=== PATIENT | male | born 1955 | race African-American/Black ===

== ENCOUNTER 2018-10-23 11:04 | Emergency (ER) | payer SELFPAY ==
[~2018-10-23] VITALS: Ht 177.8 cm; Wt 72.6 kg
[2018-10-23] MEDS ORDERED: PANTOPRAZOLE SO20 MG ORAL (11:19)
[2018-10-23] MEDS ORDERED: GABAPENTIN100 MG ORAL (11:19)
[2018-10-23] MEDS ORDERED: ADALAT10 MG ORAL (11:19)
[2018-10-23] MEDS ORDERED: METOPROLOL TART50 M1 ORAL (11:19)
[2018-10-23] MEDS ORDERED: TAMSULOSIN HCL0.4 MG ORAL (11:19)
[2018-10-23] MEDS ORDERED: TRAMADOL HCL50 MG ORAL (11:19)
[2018-10-23] MEDS ORDERED: LOSARTAN POTASS50 MG ORAL (11:19)
[2018-10-23 11:58] VITALS: BP 134/86
[2018-10-23 12:10] VITALS: BP 134/86
[2018-10-24] MEDS ORDERED: NIFEDIPINE ER60 M3 ORAL (19:50)
[2018-10-24] MEDS ORDERED: GABAPENTIN300 MG ORAL ×2 (19:50→19:54)
--- NOTE | 2018-10-25 06:52 | Emergency Room Report ---
History of Present Illness General Chief Complaint: General Complaint Source: Patient Present Illness HPI Patient presents with request for check of blood pressure Patient reports that he has long-standing history of blood pressure problems he is from [place] and has not had medications for Over the past 1 year Patient reports that he has had previous head trauma Otherwise denies any chest pain denies any back or flank pain denies any vomiting does not have any other complaints at this time Allergies: Coded Allergies: No Known Allergies (Unverified , 10/23/18) Patient History Past Medical History: see triage record Pertinent Family History: none Reviewed Nursing Documentation: PMH: Agreed; PSxH: Agreed Nursing Documentation-PMH Hx Hypertension: Yes Review of Systems All Other Systems: negative except mentioned in HPI Physical Exam Vital Signs Date Time Temp Pulse Resp B/P (MAP) Pulse Ox O2 Delivery O2 Flow Rate FiO2 10/23/18 11:10 98.6 86 18 134/86 98 Room Air Sp02 EP Interpretation: reviewed, normal General Appearance: well appearing, no apparent distress Head: normocephalic, atraumatic Eyes: bilateral eye PERRL, bilateral eye EOMI ENT: hearing grossly normal, normal pharynx, TMs + canals normal, uvula midline Neck: full range of motion, supple, no meningismus, no bony tend Respiratory: lungs clear, normal breath sounds, no rhonchi, no respiratory distress, no retraction, no accessory muscle use Cardiovascular #1: normal peripheral pulses, regular rate, rhythm, no edema, no gallop, no JVD, no murmur Gastrointestinal: normal bowel sounds, non tender, soft, no mass, no organomegaly, non-distended, no guarding, no hernia, no pulsatile mass, no rebound Genitourinary: no CVA tenderness Musculoskeletal: normal inspection Neurologic: oriented x3, responsive, finishing pan operator III-XII nml as tested, motor strength/ tone normal, sensory intact Psychiatric: mood/affect normal Skin: normal color, no rash, warm/dry, palpation normal Lymphatic: normal inspection, no adenopathy Medical Decision Making Diagnostic Impression: Primary Impression: hypertension ER Course Patient's blood pressure check here is appropriate Patient is asymptomatic he did request possible Prescription for medications I discussed with him that he has not taken medications for almost 1 year With today's blood pressure check would not be appropriate for the emergency room to initiate a prescription he was encouraged to check his blood pressure twice a day For the next several days and was provided with list of outpatient clinics Patient is told to return to the emergency room with any change in symptoms or other concerns Last Vital Signs Date Time Temp Pulse Resp B/P (MAP) Pulse Ox O2 Delivery O2 Flow Rate FiO2 10/23/18 12:10 98.6 82 18 134/86 98 Room Air Status: unchanged Disposition: HOME, SELF-CARE Condition: Stable Referrals: NOT CHOSEN IPA/,REFERRING (PCP) [facility] Radha Walker [facility] Patient Instructions: Hypertension, [id number] Additional Instructions: Your blood pressure today was normal upon the emergency room check. Please document your blood pressure twice a day for the next several days. He will also be provided with list of clinics to follow-up with. Please do not hesitate to return to the emergency room if you have any worsening symptoms such as chest pain, headache or other complaints Gisselle Ward DO Oct 25, 2018 06:52
== END 2018-10-23 11:50 | disposition home or self-care (01) ==
LOC: EMR 11:50
DX: I10 Essential (primary) hypertension (principal); F17.200 Nicotine dependence, unspecified, uncomplicated
CPT/HCPCS: 99281

== ENCOUNTER 2018-10-24 14:39 | Inpatient (IN) | payer MEDICAID ==
[~2018-10-24] VITALS: Ht 177.8 cm; Wt 81.4 kg
[~2018-10-24 14:39] MED LIST: ADALAT10 MG ORAL; GABAPENTIN100 MG ORAL; LOSARTAN POTASS50 MG ORAL; METOPROLOL TART50 M1 ORAL; PANTOPRAZOLE SO20 MG ORAL; TAMSULOSIN HCL0.4 MG ORAL; TRAMADOL HCL50 MG ORAL
--- NOTE | 2018-10-24 15:20 | NUR ---
ED Nurse Note: Received report. Pt A&Ox3-4, from home, c/o dizziness for a few hrs. During this dizziness pt became incontinent and had a bowel movement on himself. Pt cleaned. Pt had panic attack when speaking with MD; per MD assessment will do stroke work-up protocol.
--- NOTE | 2018-10-24 15:30 | NUR ---
ED Nurse Note: Pt had a dark tarry stool in liquid form. ERMD made aware. Pt was kept clean and dry. Skin is intact
[2018-10-24] MEDS ORDERED: LORazepam Inj 2mg/ml 1ml IV ONE (15:45)
--- NOTE | 2018-10-24 16:09 | Diagnostic Imaging Report ---
EXAM: XR Chest, 1 View CLINICAL HISTORY: CVA TECHNIQUE: Frontal view of the chest. COMPARISON: No relevant prior studies available. FINDINGS: Lungs: Unremarkable. No consolidation. Pleural space: Unremarkable. No pneumothorax. Heart: Unremarkable. No cardiomegaly. Mediastinum: Unremarkable. Bones/joints: Unremarkable. IMPRESSION: No evidence of acute pulmonary disease.
--- NOTE | 2018-10-24 16:11 | Diagnostic Imaging Report ---
EXAM: CT Head Without Intravenous Contrast CLINICAL HISTORY: CVA TECHNIQUE: Axial computed tomography images of the head/brain without intravenous contrast. CTDI is 70.38 mGy and DLP is 1432 mGy-cm. One or more of the following dose reduction techniques were used: automated exposure control, adjustment of the mA and/or kV according to patient size, use of iterative reconstruction technique. COMPARISON: No relevant prior studies available. FINDINGS: Brain: No intracranial hemorrhage or mass effect. No clear acute large vessel territorial infarct. 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 Minimal atrophy. Ventricles: Unremarkable. No ventriculomegaly. Bones/joints: Unremarkable. No acute fracture. Soft tissues: Unremarkable. Sinuses: Unremarkable as visualized. No acute sinusitis. Mastoid air cells: Unremarkable as visualized. No mastoid effusion. IMPRESSION: No acute intracranial process.
[2018-10-24 16:30] LABS: HEMATOCRIT 17.9 % (42.0-52.0); MEAN CORPUSCULAR VOLUME 74 FL (80-99); PLATELET COUNT 429 K/UL (150-450); RED BLOOD COUNT 2.41 M/UL (4.70-6.10); RED CELL DISTRIBUTION WIDTH 21.7 % (11.6-14.8); WHITE BLOOD COUNT 14.1 K/UL (4.8-10.8)
[2018-10-24 16:33] LABS: HEMOGLOBIN 5.4 G/DL (14.2-18.0)
[2018-10-24 16:40] LABS: ANION GAP 11 mmol/L (5-15); BLOOD UREA NITROGEN 27 mg/dL (7-18); CALCIUM 8.9 MG/DL (8.5-10.1); CARBON DIOXIDE 24 MMOL/L (21-32); CHLORIDE 110 MMOL/L (98-107); CREATININE 1.1 MG/DL (0.55-1.30); SODIUM 145 MMOL/L (136-145)
[2018-10-24] MEDS ORDERED: Pantoprazole Inj IVP ONE (16:45)
[2018-10-24 16:46] VITALS: BP 129/79
--- NOTE | 2018-10-24 16:46 | NUR ---
ED Nurse Note: Pt. is currently sleeping with no s/s of acute distress
[2018-10-24 16:50] LABS: ALANINE AMINOTRANSFERASE 18 U/L (12-78); ALBUMIN 3.2 G/DL (3.4-5.0); ALBUMIN/GLOBULIN RATIO 1.1 (1.0-2.7); ALKALINE PHOSPHATASE 51 U/L (46-116); ASPARTATE AMINO TRANSFERASE 9 U/L (15-37); BILIRUBIN,TOTAL 0.2 MG/DL (0.2-1.0); CHOLESTEROL 113 MG/DL (< 200); HDL CHOLESTEROL 49 MG/DL (40-60); TRIGLYCERIDES 81 MG/DL (30-150)
--- NOTE | 2018-10-24 17:04 | NUR ---
ED Nurse Note: called lab to follow up regarding the two pink top said. Dylan technician assistant verified it
[2018-10-24 18:09] VITALS: BP 122/71
--- NOTE | 2018-10-24 18:52 | Emergency Room Report ---
History of Present Illness General Chief Complaint: Dizziness Source: Patient Present Illness HPI 63-year-old male presents ED for evaluation. Complaining of dizziness which started today. States he feels lightheaded with unsteady gait. Denies any headache. Per nursing patient had large dark colored bowel movement here in ED. Patient denies any abdominal pain. Denies any prior history of dark stools. Denies any blood thinners. Denies chest pain or shortness of breath. No other aggravating relieving factors. Denies any other associated symptoms Allergies: Coded Allergies: No Known Allergies (Unverified , 10/23/18) Patient History Past Medical History: HTN Pertinent Family History: none Social History: Denies: smoking, alcohol use, drug use Immunizations: UTD Reviewed Nursing Documentation: PMH: Agreed; PSxH: Agreed Nursing Documentation-PMH Hx Hypertension: Yes Hx Gastrointestinal Problems: Yes Hx Neurological Problems: Yes - Head trauma Review of Systems All Other Systems: negative except mentioned in HPI Physical Exam Vital Signs Date Time Temp Pulse Resp B/P (MAP) Pulse Ox O2 Delivery O2 Flow Rate FiO2 10/24/18 14:57 98.1 93 18 112/69 100 Room Air Sp02 EP Interpretation: reviewed, normal General Appearance: no apparent distress, alert, GCS 15, non-toxic Head: normocephalic, atraumatic Eyes: bilateral eye normal inspection, bilateral eye PERRL ENT: hearing grossly normal, normal pharynx, no angioedema, normal voice Neck: full range of motion, supple/symm/no masses Respiratory: chest non-tender, lungs clear, normal breath sounds, speaking full sentences Cardiovascular #1: regular rate, rhythm, no edema Cardiovascular #2: 2+ carotid (R), 2+ carotid (L), 2+ radial (R), 2+ radial (L) , 2+ dorsalis pedis (R), 2+ dorsalis pedis (L) Gastrointestinal: normal bowel sounds, non tender, soft, non-distended, no guarding, no rebound Rectal: deferred, black stool Genitourinary: normal inspection, no CVA tenderness Musculoskeletal: back normal, gait/station normal, normal range of motion, non- tender Neurologic: alert, oriented x3, responsive, motor strength/tone normal, sensory intact, speech normal Psychiatric: judgement/insight normal, memory normal, mood/affect normal, no suicidal/homicidal ideation Reflexes: 3+ bicep (R), 3+ bicep (L), 3+ tricep (R), 3+ tricep (L), 3+ knee (R) , 3+ knee (L) Skin: normal color, no rash, warm/dry, well hydrated Lymphatic: no adenopathy Medical Decision Making Diagnostic Impression: Primary Impression: Dizziness Additional Impressions: Anemia Qualified Codes: D64.9 - Anemia, unspecified LGI bleed ER Course Hospital Course 63-year-old M presents to ED with rectal bleeding, dizziness Differential diagnoses include: LGIB, ACS/ID, CVA, anemia Clinical course Patient placed on stretcher. emergency medical service manager. After initial history and physical I ordered labs, IV fluids, CT Head, EKG Labs - no leukocytosis, Hb 5.4. electrolytes ok, trop negative EKG - NSR, no acute ischemic changes interpreed by me CT head unremarkable Dizziness likely due to anemia from the lower GI bleed. Given IV Protonix. Given IV fluids. PRBCs ordered Case discussed with Dr. Singer and he agreed to accept the patient to his service for further care and support I feel this is a highly complex case requiring extensive working including EKG/ Rhythm strip, Xray/CT/US, Blood/urine lab work, repeat exams while in ED, and administration of strong opiates/narcotics for pain control, admission to hospital or close patient follow up. Diagnosis - LGIB, dizziness, anemia Patient admitted to telemetry in serious condition Labs Test 10/24/18 15:38 10/24/18 16:11 Urine Opiates Screen Negative (NEGATIVE) Urine Barbiturates Screen Negative (NEGATIVE) Phencyclidine (PCP) Screen Negative (NEGATIVE) Urine Amphetamines Screen Negative (NEGATIVE) Urine Benzodiazepines Screen Negative (NEGATIVE) Urine Cocaine Screen Negative (NEGATIVE) Urine Marijuana (THC) Screen Negative (NEGATIVE) White Blood Count 14.1 K/UL (4.8-10.8) Red Blood Count 2.41 M/UL (4.70-6.10) Hemoglobin 5.4 G/DL (14.2-18.0) Hematocrit 17.9 % (42.0-52.0) Mean Corpuscular Volume 74 FL (80-99) Mean Corpuscular Hemoglobin 22.4 PG (27.0-31.0) Mean Corpuscular Hemoglobin Concent 30.2 G/DL (32.0-36.0) Red Cell Distribution Width 21.7 % (11.6-14.8) Platelet Count 429 K/UL (150-450) Mean Platelet Volume 4.7 FL (6.5-10.1) Neutrophils (%) (Auto) % (45.0-75.0) Lymphocytes (%) (Auto) % (20.0-45.0) Monocytes (%) (Auto) % (1.0-10.0) Eosinophils (%) (Auto) % (0.0-3.0) Basophils (%) (Auto) % (0.0-2.0) Differential Total Cells Counted 100 Neutrophils % (Manual) 85 % (45-75) Lymphocytes % (Manual) 11 % (20-45) Monocytes % (Manual) 4 % (1-10) Eosinophils % (Manual) 0 % (0-3) Basophils % (Manual) 0 % (0-2) Band Neutrophils 0 % (0-8) Platelet Estimate Adequate Platelet Morphology Normal Polychromasia 1+ Hypochromasia 3+ Anisocytosis 3+ Microcytosis 1+ Target Cells Occasional Acanthocytes 1+ Schistocytes 2+ Prothrombin Time 10.6 SEC (9.30-11.50) Prothromb Time International Ratio 1.0 (0.9-1.1) Activated Partial Thromboplast Time 20 SEC (23-33) Sodium Level 145 MMOL/L (136-145) Potassium Level 4.0 MMOL/L (3.5-5.1) Chloride Level 110 MMOL/L (98-107) Carbon Dioxide Level 24 MMOL/L (21-32) Anion Gap 11 mmol/L (5-15) Blood Urea Nitrogen 27 mg/dL (7-18) Creatinine 1.1 MG/DL (0.55-1.30) Estimat Glomerular Filtration Rate > 60 mL/min (>60) Glucose Level 106 MG/DL (74-106) Calcium Level 8.9 MG/DL (8.5-10.1) Total Bilirubin 0.2 MG/DL (0.2-1.0) Aspartate Amino Transf (AST/SGOT) 9 U/L (15-37) Alanine Aminotransferase (ALT/SGPT) 18 U/L (12-78) Alkaline Phosphatase 51 U/L (46-116) Troponin I 0.000 ng/mL (0.000-0.056) Total Protein 6.0 G/DL (6.4-8.2) Albumin 3.2 G/DL (3.4-5.0) Globulin 2.8 g/dL Albumin/Globulin Ratio 1.1 (1.0-2.7) Triglycerides Level 81 MG/DL (30-150) Cholesterol Level 113 MG/DL (< 200) LDL Cholesterol 49 mg/dL (<100) HDL Cholesterol 49 MG/DL (40-60) Cholesterol/HDL Ratio 2.3 (3.3-4.4) Salicylates Level 7.0 ug/mL (2.8-20) Acetaminophen Level < 2 MCG/ML (10-30) Serum Alcohol < 3 mg/dL EKG Diagnostic Results Rate: normal Rhythm: NSR ST Segments: no acute changes ASA given to the pt in ED: No Rhythm Strip Diag. Results EP Interpretation: yes Rhythm: NSR, no PVC's, no ectopy Chest X-Ray Diagnostic Results Chest X-Ray Diagnostic Results : Chest X-Ray Ordered: Yes # of Views/Limited/Complete: 1 View Indication: Other - dizziness EP Interpretation: Yes Interpretation: no consolidation, no effusion, no pneumothorax, no acute cardiopulmonary disease Impression: No acute disease Electronically Signed by: Electronically signed by Greg Flowers MD CT/MRI/US Diagnostic Results CT/MRI/US Diagnostic Results : Imaging Test Ordered: CT Head Impression no acute process Last Vital Signs Date Time Temp Pulse Resp B/P (MAP) Pulse Ox O2 Delivery O2 Flow Rate FiO2 10/24/18 16:46 78 18 Room Air 10/24/18 16:46 98.1 129/79 100 Status: improved Disposition: ADMITTED INPATIENT Condition: Serious Referrals: NOT CHOSEN IPA/,REFERRING (PCP) Greg Flowers MD Oct 24, 2018 18:52
--- NOTE | 2018-10-24 19:18 | NUR ---
HAND-OFF: Report given to Ale TSANG. Endorsed continuation of blood transfusions currently on bag . Also endorsed transfer to telemetry unit when room assignment received. Pt stable.
--- NOTE | 2018-10-24 19:35 | NUR ---
ED Nurse No RECIEVED REPORT FROM [facility], PT IN BED AWAKE, ALERT AND ORIENTED X 4, PT IS CURRENTLY RECIEVING BLOOD TRANSFUSION OF PRBC'S, TOLERATING WELL, SITE INTACT AND PATENT, PT ON CARDIAC MONITORING, V/S STABLE, PT DENEIS PAIN, NO SOB OR ALBORED BREATHING NOTED, PT FAMILY AT BEDSIDE, WILL RESUME CARE ORDERED, MONITOR TRANSUSION AND PREPARE FOR HOSPITAL ADMISSION.
[2018-10-24] MEDS ORDERED: NIFEDIPINE ER60 M3 ORAL (19:50)
[2018-10-24] MEDS ORDERED: GABAPENTIN300 MG ORAL ×2 (19:50→19:54)
[2018-10-24 20:00] VITALS: BP 127/68
--- NOTE | 2018-10-24 21:20 | NUR ---
ED Nurse Note: PT HAS ROOM FOR ADMISSION, PRBC CONTINUING, IV SITE INTACT AND PATENT, PT TOLERATING WELL, V/S STABLE, PT DENIES CP OR ANY PAIN, NO SOB OR LABORED BREATHING, REPORT CALLED TO FLOOR NURSE [facility] ON UNIT, PT BELONGINGS LIST COMPLETED, WILL SEND TO UNIT FOR ADMISSION, NAD OR CHANGES NOTED.
[2018-10-24] MEDS ORDERED: Morphine Sulfate 4mg/ml Inj (IV/IM USE ONLY) IVP PRN (21:30)
[2018-10-24] MEDS ORDERED: Mylanta II UD 30ml ORAL PRN (21:30)
[2018-10-24] MEDS ORDERED: Nitroglycerin Subl 0.4mg tab SL PRN (21:30)
[2018-10-24] MEDS ORDERED: Miralax 17gm pkt ORAL PRN (21:30)
[2018-10-24 22:00] VITALS: BP 129/77
--- NOTE | 2018-10-24 22:00 | NUR ---
ED Nurse Note: PT UNIT OF PRBC COMPLETED, PT TOLERATED WELL, V/S STABLE, NO S/S OF ADVERSE REACTION NOTED, PT IS CURRENTLY BEING TAKEN TO FLOOR UNIT FOR ADMISISON, LINE FLUSING, PT DENEIS CP OR ANY PAIN, ALL FORMS, EKG, AND BELONGINGS LIST WITH PT, WILL SEND TO FLOOR BED.
--- NOTE | 2018-10-24 22:20 | NUR ---
ED Nurse Note: PT TAKEN TO FLOOR UNIT VIA GURNEY AND ACLS PROTOCOLS WITH CARDIAC MONITORING, RN, AND ER-TECH, PT IS AWAKE AND ALERT, DENEIS CP OR ANY PAIN, IV SITE PATENT, NAD NOTED DURING PT TRANSPORT TO UNIT.
[2018-10-24 22:30] VITALS: BP 119/79
--- NOTE | 2018-10-24 22:30 | NUR ---
NURSE NOTES: Pt safely admitted to floor from ED. Pt belongings verified. compliance monitor applied and pt in SR in the 70s. Report received from [facility]. Pt is lying comfortably in semi-fowlers with no signs of distress. A+Ox4 and denies pain/SOB. Respirations are even and unlabored on room air. IV site is patent, intact, and saline locked. Bed is at lowest position, brakes engaged, siderails x2, bed alarm on, and call light within reach. Pt is in stable condition at this time; will continue to monitor.
--- NOTE | 2018-10-24 22:35 | NUR ---
NURSE NOTES: Spoke with Dr. Salas and admission orders are in. Dr. Salas ordered to continue the rest of the PRBCs ordered by ED MD. Will carry out order.
[2018-10-24] MEDS: D5NS 1,000 ML IV SCH (22:43)
[2018-10-24] MEDS ORDERED: Phytonadione 10 MG in D5W 55 ML IVPB ONE (23:00)
--- NOTE | 2018-10-24 23:13 | General Progress Note ---
Assessment/Plan Assessment/Plan Assessment - GIB - s/p gastric bypass - microcytic anemia Recommendations - clears - GI prep - EGD/Colon Friday Thank you P Yohannes Subjective Allergies: Coded Allergies: No Known Allergies (Unverified , 10/23/18) Objective Last 24 Hour Vital Signs Date Time Temp Pulse Resp B/P (MAP) Pulse Ox O2 Delivery O2 Flow Rate FiO2 10/24/18 22:20 98.4 77 16 129/77 99 Room Air 10/24/18 22:00 98.4 77 16 129/77 99 Room Air 10/24/18 20:00 98.1 77 16 127/68 99 Room Air 10/24/18 18:09 98.1 73 16 122/71 98 Room Air 10/24/18 16:46 78 18 Room Air 10/24/18 16:46 98.1 78 18 129/79 100 Room Air 10/24/18 14:57 98.1 93 18 112/69 100 Room Air Laboratory Tests 10/24/18 15:38: Urine Opiates Screen Negative, Urine Barbiturates Screen Negative, Phencyclidine (PCP) Screen Negative, Urine Amphetamines Screen Negative, Urine Benzodiazepines Screen Negative, Urine Cocaine Screen Negative, Urine Marijuana (THC) Screen Negative 10/24/18 16:11: White Blood Count 14.1H, Red Blood Count 2.41L, Hemoglobin 5.4*L, Hematocrit 17.9L, Mean Corpuscular Volume 74L, Mean Corpuscular Hemoglobin 22.4L, Mean Corpuscular Hemoglobin Concent 30.2L, Red Cell Distribution Width 21.7H, Platelet Count 429, Mean Platelet Volume 4.7L, Neutrophils (%) (Auto) , Lymphocytes (%) (Auto) , Monocytes (%) (Auto) , Eosinophils (%) (Auto) , Basophils (%) (Auto) , Differential Total Cells Counted 100, Neutrophils % ( Manual) 85H, Lymphocytes % (Manual) 11L, Monocytes % (Manual) 4, Eosinophils % ( Manual) 0, Basophils % (Manual) 0, Band Neutrophils 0, Platelet Estimate Adequate, Platelet Morphology Normal, Polychromasia 1+, Hypochromasia 3+, Anisocytosis 3+, Microcytosis 1+, Target Cells Occasional, Acanthocytes 1+, Schistocytes 2+, Prothrombin Time 10.6, Prothromb Time International Ratio 1.0, Activated Partial Thromboplast Time 20L, Sodium Level 145, Potassium Level 4.0, Chloride Level 110H, Carbon Dioxide Level 24, Anion Gap 11, Blood Urea Nitrogen 27H, Creatinine 1.1, Estimat Glomerular Filtration Rate > 60, Glucose Level 106 , Calcium Level 8.9, Total Bilirubin 0.2, Aspartate Amino Transf (AST/SGOT) 9L, Alanine Aminotransferase (ALT/SGPT) 18, Alkaline Phosphatase 51, Troponin I 0.000, Total Protein 6.0L, Albumin 3.2L, Globulin 2.8, Albumin/Globulin Ratio 1.1, Triglycerides Level 81, Cholesterol Level 113, LDL Cholesterol 49, HDL Cholesterol 49, Cholesterol/HDL Ratio 2.3L, Salicylates Level 7.0, Acetaminophen Level < 2L, Serum Alcohol < 3 Height (Feet): 5 Height (Inches): 10.00 Weight (Pounds): 175 Chava Sheffield MD Oct 24, 2018 23:13
--- NOTE | 2018-10-24 23:26 | NUR ---
NURSE NOTES: 2/4 bag of PRBCs started.
[2018-10-25] VITALS: BP 134/67
[2018-10-25 04:00] VITALS: BP 119/79
--- NOTE | 2018-10-25 04:30 | Consultation ---
DATE OF CONSULTATION: 10/24/2018 GASTROENTEROLOGY CONSULTATION CONSULTING PHYSICIAN: Chava Sheffield M.D. REFERRING PHYSICIAN: Srinivas Singer D.O. CHIEF COMPLAINT: I was asked to see this patient by Dr. Srinivas Singer for evaluation of gastrointestinal bleeding. HISTORY OF PRESENT ILLNESS: The patient is a 63-year-old man, who is a poor historian who was brought in to the hospital due to dizziness. He was found to have rectal bleeding and therefore was admitted. He has severe anemia as well as less counts. He stated he had a gastric bypass many years ago. He is very unsure of date and several times throughout the interview, he stated you follow my chart and my brother has the chart. It seems he has had a colonoscopy before, but once again, he is completely unaware of how many years ago it might have been done. He denies any nausea or vomiting, but he does have hematochezia on admission. PAST MEDICAL HISTORY: History of hypertension. FAMILY HISTORY: Noncontributory. SOCIAL HISTORY: The patient is . He does smoke. He does not drink alcohol. REVIEW OF SYSTEMS: Otherwise negative. MEDICATIONS: See the chart list for details. PHYSICAL EXAMINATION: GENERAL: A well-developed and well-nourished man, seen in his room. HEENT: Normocephalic and atraumatic. Sclerae were anicteric. Oropharynx is clear. NECK: Supple. CHEST: Clear to auscultation. CARDIOVASCULAR: Revealed regular rate. ABDOMEN: Soft with a linear epigastric vertical scar. EXTREMITIES: Revealed no edema. NEUROLOGIC: Grossly nonfocal. LABORATORY DATA: Noted. ASSESSMENT: This patient presents with hematochezia and severe microcytic anemia of unclear etiology. The gastric bypass may potentially have caused long-term iron deficiency and microcytic anemia, however, he also has some degree of hematochezia and therefore, acute gastrointestinal bleeding will have to be also evaluated. In addition, his upper GI tract may have anastomotic ulcers with intermittent long-term blood loss and therefore, both upper endoscopy and colonoscopy should be done to evaluate his gastrointestinal tract. The indications, risks, alternatives, and possible complications of the procedures were explained to the patient and informed consent was obtained. RECOMMENDATIONS: 1. Clear liquid diet. 2. GI tract preparation. 3. Endoscopy and colonoscopy on Friday. Thank you for asking me to participate in the care of this patient. Chava Sheffield M.D. DR: ALLIE JOB#: [id number] CC: CHANTALE
--- NOTE | 2018-10-25 07:12 | NUR ---
NURSE NOTES: Pt received from Bri Perry RN alert and oriented x4 with no complaints or s/s of pain, SOB, or n/v. Currently running 4th bag of PRBC with no s/s of adverse reactions, will continue to monitor pt. IV site asymptomatic and patent. Bed in lowest position, call light and belongings within reach. RN advised pt that he can have clear liquids today and that he will be on [place] but he will have to be NPO at midnight tonight for EGD and colonoscopy tomorrow, pt verbalized understanding.
[2018-10-25 08:00] VITALS: BP 126/83
[2018-10-25] MEDS: D5NS 1,000 ML IV SCH ×2 (08:00→17:44)
[2018-10-25] MEDS: Metoprolol Tartrate 50mg tab ORAL SCH ×2 (08:32→21:27)
[2018-10-25] MEDS: Pantoprazole Inj IVP SCH (08:33)
[2018-10-25 10:38] LABS: HEMATOCRIT 23.1 % (42.0-52.0); HEMOGLOBIN 7.7 G/DL (14.2-18.0); MEAN CORPUSCULAR VOLUME 77 FL (80-99); PLATELET COUNT 303 K/UL (150-450); RED BLOOD COUNT 2.99 M/UL (4.70-6.10); RED CELL DISTRIBUTION WIDTH 18.4 % (11.6-14.8); WHITE BLOOD COUNT 8.4 K/UL (4.8-10.8)
[2018-10-25 11:04] LABS: ALANINE AMINOTRANSFERASE 18 U/L (12-78); ALBUMIN 2.5 G/DL (3.4-5.0); ALBUMIN/GLOBULIN RATIO 1.1 (1.0-2.7); ALKALINE PHOSPHATASE 49 U/L (46-116); AMYLASE 44 U/L (25-115); ANION GAP 5 mmol/L (5-15); ASPARTATE AMINO TRANSFERASE 17 U/L (15-37); BILIRUBIN,TOTAL 0.9 MG/DL (0.2-1.0); BLOOD UREA NITROGEN 16 mg/dL (7-18); CALCIUM 7.8 MG/DL (8.5-10.1); CARBON DIOXIDE 25 MMOL/L (21-32); CHLORIDE 111 MMOL/L (98-107); CREATININE 0.9 MG/DL (0.55-1.30); POTASSIUM 3.6 MMOL/L (3.5-5.1); SODIUM 141 MMOL/L (136-145)
[2018-10-25 12:00] VITALS: BP 132/90
[2018-10-25] MEDS ORDERED: Nulytely 4L ORAL ONE (12:00)
--- NOTE | 2018-10-25 12:45 | NUR ---
NURSE NOTES: RN called [facility] to obtain medical records from EGD and colonoscopy done on October 2018 but there was no answer. Per Martha, the ad terminal makeup operator, stated that they are closed on Sundays but will open on Friday at 8AM. Will endorse to the next RN to have morning RN follow up with and call [facility] ([phone]).
--- NOTE | 2018-10-25 14:36 | NUR ---
CASE MANAGEMENT: INITIAL REVIEW 10/24/2018 63 YO M PRESENTED TO ED FROM HOME CC: DIZZINESS PMHx: HTN. HEAD TRAUMA. SI:DIZZINESS. ANEMIA. LOWER GI BLEED. T 98.1 HR 93 RR 18 B/P 112/69 SATS 100% ON RA WBC 14.1 HGB 5.4 HCT 17.9 CL 110 BUN 27 AST 9 IS: ATIVAN IV X1 PROTONIX IV X1 NS BOLUS X1 PATIENT ADMITTED TO TELE 10/24/2018 @ 1801 DCP: PATIENT TO BE DISCHARGED TO HOME ONCE MEDICALLY CLEARED. PLAN OF CARE: PER MD>> 1. Clear liquid diet. 2. GI tract preparation. 3. Endoscopy and colonoscopy on Friday. 10/25/2018 SI:DIZZINESS. ANEMIA. LOWER GI BLEED. T 97.5 71 RR 18 B/P 134/67 SATS 96% ON RA HGB 7.7 HCT 23.1 CL 111 IS: IVF @ 100 mL/HR LOPRESSOR PO Q12H FLOMAX PO QHS GABAPENTIN PO BID PROTONIX IV QD TELE STATUS DCP: PATIENT TO BE DISCHARGED TO HOME ONCE MEDICALLY CLEARED. PLAN OF CARE: TRANSFUSE 4 UNITS OF RBCs PER MD>> 1. Clear liquid diet. 2. GI tract preparation. 3. Endoscopy and colonoscopy on Friday. Addendum: 10/25/18 at 1836 by Ruth Zamora CM INTERQUAL MET FOR ACUTE
--- NOTE | 2018-10-25 15:21 | Cardiology Report ---
APPROVED REPORT EKG Measurement Heart [id number] ND [id number] Normal sinus rhythm Normal ECG
--- NOTE | 2018-10-25 15:37 | Consultation ---
History of Present Illness General Date patient seen: Oct 25, 2018 Chief Complaint: Dizziness Present Illness HPI 63-year-old male presents ED for evaluation. Complaining of dizziness which started today. States he feels lightheaded with unsteady gait. Denies any headache. Patient had large dark colored bowel movement in ED. Patient denies any abdominal pain. Denies any prior history of dark stools. Denies any blood thinners. Denies chest pain or shortness of breath. No other aggravating relieving factors. Denies any other associated symptoms. Apparently he had extensive work up done recently in a hospital in [place]. Allergies: Coded Allergies: No Known Allergies (Unverified , 10/23/18) Medication History Scheduled Gabapentin* (Gabapentin*), 300 MG ORAL BID, (Reported) Losartan Potassium* (Losartan Potassium*), 100 MG ORAL DAILY, (Reported) Metoprolol Tartrate* (Metoprolol Tartrate*), 50 MG ORAL EVERY 12 HOURS, ( Reported) Nifedipine Er* (Nifedipine Er*), 60 MG ORAL DAILY, (Reported) Pantoprazole (Pantoprazole), 40 MG ORAL DAILY, (Reported) Tamsulosin Hcl (Tamsulosin Hcl*), 0.4 MG ORAL BEDTIME, (Reported) Scheduled PRN Tramadol Hcl* (Ultram*), 50 MG ORAL Q6H PRN for For Pain, (Reported) Discontinued Medications Gabapentin* (Gabapentin*), 100 MG ORAL THREE TIMES A DAY, (Reported) Discontinued Reason: Medication dose changed Nifedipine (Nifedipine*), 60 MG ORAL EVERY 6 HOURS, (Reported) Discontinued Reason: Medication dose changed Patient History Healthcare decision maker Resuscitation status Full Code Advanced Directive on File No Past Medical/Surgical History Past Medical/Surgical History: (1) Anemia (2) HTN (hypertension) Review of Systems All Other Systems: negative except mentioned in HPI Physical Exam General Appearance: WD/WN Lines, tubes and drains: peripheral, PICC HEENT: normocephalic, atraumatic Neck: non-tender, supple Respiratory/Chest: chest wall non-tender, no respiratory distress Cardiovascular/Chest: normal peripheral pulses, regular rhythm Last 24 Hour Vital Signs Date Time Temp Pulse Resp B/P (MAP) Pulse Ox O2 Delivery O2 Flow Rate FiO2 10/25/18 08:32 81 126/83 10/25/18 08:00 100 10/25/18 08:00 98.3 80 18 126/83 (97) 100 10/25/18 04:00 82 10/25/18 04:00 98.5 73 18 119/79 (92) 95 10/25/18 00:00 97.5 71 18 134/67 (89) 96 10/25/18 00:00 70 10/24/18 22:57 Room Air 10/24/18 22:30 98.5 73 18 119/79 (92) 95 10/24/18 22:20 98.4 77 16 129/77 99 Room Air 10/24/18 22:00 98.4 77 16 129/77 99 Room Air 10/24/18 20:00 98.1 77 16 127/68 99 Room Air 10/24/18 18:09 98.1 73 16 122/71 98 Room Air 10/24/18 16:46 78 18 Room Air 10/24/18 16:46 98.1 78 18 129/79 100 Room Air Intake and Output 10/24/18 10/25/18 19:00 07:00 Output Total 400 ml Balance -400 ml Output Urine Total 400 ml # Voids 1 2 Laboratory Tests Test 10/24/18 15:38 10/24/18 16:11 10/25/18 10:00 Urine Opiates Screen Negative (NEGATIVE) Urine Barbiturates Screen Negative (NEGATIVE) Phencyclidine (PCP) Screen Negative (NEGATIVE) Urine Amphetamines Screen Negative (NEGATIVE) Urine Benzodiazepines Screen Negative (NEGATIVE) Urine Cocaine Screen Negative (NEGATIVE) Urine Marijuana (THC) Screen Negative (NEGATIVE) White Blood Count 14.1 K/UL (4.8-10.8) H 8.4 K/UL (4.8-10.8) Red Blood Count 2.41 M/UL (4.70-6.10) L 2.99 M/UL (4.70-6.10) L Hemoglobin 5.4 G/DL (14.2-18.0) *L 7.7 G/DL (14.2-18.0) #L Hematocrit 17.9 % (42.0-52.0) L 23.1 % (42.0-52.0) L Mean Corpuscular Volume 74 FL (80-99) L 77 FL (80-99) L Mean Corpuscular Hemoglobin 22.4 PG (27.0-31.0) L 25.9 PG (27.0-31.0) L Mean Corpuscular Hemoglobin Concent 30.2 G/DL (32.0-36.0) L 33.5 G/DL (32.0-36.0) Red Cell Distribution Width 21.7 % (11.6-14.8) H 18.4 % (11.6-14.8) H Platelet Count 429 K/UL (150-450) 303 K/UL (150-450) Mean Platelet Volume 4.7 FL (6.5-10.1) L 5.2 FL (6.5-10.1) L Neutrophils (%) (Auto) % (45.0-75.0) % (45.0-75.0) Lymphocytes (%) (Auto) % (20.0-45.0) % (20.0-45.0) Monocytes (%) (Auto) % (1.0-10.0) % (1.0-10.0) Eosinophils (%) (Auto) % (0.0-3.0) % (0.0-3.0) Basophils (%) (Auto) % (0.0-2.0) % (0.0-2.0) Differential Total Cells Counted 100 100 Neutrophils % (Manual) 85 % (45-75) H 88 % (45-75) H Lymphocytes % (Manual) 11 % (20-45) L 5 % (20-45) L Monocytes % (Manual) 4 % (1-10) 5 % (1-10) Eosinophils % (Manual) 0 % (0-3) 1 % (0-3) Basophils % (Manual) 0 % (0-2) 1 % (0-2) Band Neutrophils 0 % (0-8) 0 % (0-8) Platelet Estimate Adequate Adequate Platelet Morphology Normal Normal Polychromasia 1+ 2+ Hypochromasia 3+ 2+ Anisocytosis 3+ 2+ Microcytosis 1+ 2+ Target Cells Occasional Acanthocytes 1+ Schistocytes 2+ 2+ Prothrombin Time 10.6 SEC (9.30-11.50) 10.7 SEC (9.30-11.50) Prothromb Time International Ratio 1.0 (0.9-1.1) 1.0 (0.9-1.1) Activated Partial Thromboplast Time 20 SEC (23-33) L 22 SEC (23-33) L Sodium Level 145 MMOL/L (136-145) 141 MMOL/L (136-145) Potassium Level 4.0 MMOL/L (3.5-5.1) 3.6 MMOL/L (3.5-5.1) Chloride Level 110 MMOL/L (98-107) H 111 MMOL/L (98-107) H Carbon Dioxide Level 24 MMOL/L (21-32) 25 MMOL/L (21-32) Anion Gap 11 mmol/L (5-15) 5 mmol/L (5-15) Blood Urea Nitrogen 27 mg/dL (7-18) H 16 mg/dL (7-18) Creatinine 1.1 MG/DL (0.55-1.30) 0.9 MG/DL (0.55-1.30) Estimat Glomerular Filtration Rate > 60 mL/min (>60) > 60 mL/min (>60) Glucose Level 106 MG/DL (74-106) 92 MG/DL (74-106) Calcium Level 8.9 MG/DL (8.5-10.1) 7.8 MG/DL (8.5-10.1) L Total Bilirubin 0.2 MG/DL (0.2-1.0) 0.9 MG/DL (0.2-1.0) Aspartate Amino Transf (AST/SGOT) 9 U/L (15-37) L 17 U/L (15-37) Alanine Aminotransferase (ALT/SGPT) 18 U/L (12-78) 18 U/L (12-78) Alkaline Phosphatase 51 U/L (46-116) 49 U/L (46-116) Troponin I 0.000 ng/mL (0.000-0.056) Total Protein 6.0 G/DL (6.4-8.2) L 4.8 G/DL (6.4-8.2) L Albumin 3.2 G/DL (3.4-5.0) L 2.5 G/DL (3.4-5.0) L Globulin 2.8 g/dL 2.3 g/dL Albumin/Globulin Ratio 1.1 (1.0-2.7) 1.1 (1.0-2.7) Triglycerides Level 81 MG/DL (30-150) Cholesterol Level 113 MG/DL (< 200) LDL Cholesterol 49 mg/dL (<100) HDL Cholesterol 49 MG/DL (40-60) Cholesterol/HDL Ratio 2.3 (3.3-4.4) L Salicylates Level 7.0 ug/mL (2.8-20) Acetaminophen Level < 2 MCG/ML (10-30) L Serum Alcohol < 3 mg/dL Nucleated Red Blood Cells 4 /100 WBC Amylase Level 44 U/L (25-115) Lipase 220 U/L (73-393) Height (Feet): 5 Height (Inches): 10.00 Weight (Pounds): 175 Medications Current Medications Medications (Trade) Dose Ordered Sig/Keyon Route PRN Reason Start Time Stop Time Status Last Admin Dose Admin Acetaminophen (Tylenol) 650 mg Q4H PRN ORAL fever (temp>100.5F) 10/24/18 21:30 11/23/18 21:29 Al Hydroxide/Mg Hydroxide (Mylanta II) 30 ml Q6H PRN ORAL dyspepsia 10/24/18 21:30 11/23/18 21:29 Dextrose (Dextrose 50%) 25 ml Q30M PRN IV Hypoglycemia 10/24/18 21:30 11/23/18 21:29 Dextrose (Dextrose 50%) 50 ml Q30M PRN IV Hypoglycemia 10/24/18 21:30 11/23/18 21:29 Dextrose/Sodium Chloride 1,000 ml @ 100 mls/hr Q10H IV 10/24/18 22:00 11/23/18 21:59 10/24/18 22:43 Diphenhydramine HCl (Benadryl) 25 mg Q6H PRN ORAL Itching/Pruritis 10/24/18 21:30 11/23/18 21:29 Gabapentin (Neurontin) 300 mg BID ORAL 10/25/18 09:00 11/24/18 08:59 10/25/18 08:32 Metoprolol Tartrate (Lopressor) 50 mg EVERY 12 HOURS ORAL 10/25/18 09:00 11/24/18 08:59 10/25/18 08:32 Morphine Sulfate (Morphine Sulfate) 2 mg Q4H PRN IVP severe Pain (Pain Scale 7-10) 10/24/18 21:30 10/31/18 21:29 Nitroglycerin (Ntg) 0.4 mg Q5M X 3 DOSES PRN SL Prn Chest Pain 10/24/18 21:30 11/23/18 21:29 Ondansetron HCl (Zofran) 4 mg Q6H PRN IVP Nausea & Vomiting 10/24/18 21:30 11/23/18 21:29 Pantoprazole (Protonix) 40 mg DAILY IVP 10/25/18 09:00 11/24/18 08:59 10/25/18 08:33 Polyethylene Glycol (Miralax) 17 gm HSPRN PRN ORAL Constipation 10/24/18 21:30 11/23/18 21:29 Tamsulosin HCl (Flomax) 0.4 mg BEDTIME ORAL 10/25/18 21:00 11/24/18 20:59 Temazepam (Restoril) 15 mg HSPRN PRN ORAL Insomnia 10/24/18 21:30 10/31/18 21:29 Assessment/Plan Problem List: (1) LGI bleed ICD Codes: K92.2 - Gastrointestinal hemorrhage, unspecified SNOMED: 07565776, 143420333 (2) HTN (hypertension) ICD Codes: I10 - Essential (primary) hypertension SNOMED: 65711076 (3) Anemia ICD Codes: D64.9 - Anemia, unspecified SNOMED: 400423870, 128876816 Qualifiers: Qualified Codes: D64.9 - Anemia, unspecified Assessment/Plan npo GI evaluation prbc prn symptomatic treatment Nelsy Salas MD Oct 25, 2018 15:37
[2018-10-25 16:00] VITALS: BP 127/84
--- NOTE | 2018-10-25 17:26 | General Progress Note ---
Assessment/Plan Assessment/Plan Assessment - GIB - s/p gastric bypass - microcytic anemia Recommendations - hold off on Friday EGD/Colon - Get results of recent EGD/Colon done in [facility] - transfuse PRN - IV Fe Subjective Allergies: Coded Allergies: No Known Allergies (Unverified , 10/23/18) Subjective received call from RN apparently brother showed with some papers from a hospital in [place] apparently the patient had an EGD/Colon just a few weeks ago advised RN to hold GI prep instructions and to get the results of outside EGD/ Colon Objective Last 24 Hour Vital Signs Date Time Temp Pulse Resp B/P (MAP) Pulse Ox O2 Delivery O2 Flow Rate FiO2 10/25/18 12:00 64 10/25/18 12:00 97.4 61 18 132/90 (104) 99 10/25/18 09:00 Room Air 10/25/18 08:32 81 126/83 10/25/18 08:00 100 10/25/18 08:00 98.3 80 18 126/83 (97) 100 10/25/18 04:00 82 10/25/18 04:00 98.5 73 18 119/79 (92) 95 10/25/18 00:00 97.5 71 18 134/67 (89) 96 10/25/18 00:00 70 10/24/18 22:57 Room Air 10/24/18 22:30 98.5 73 18 119/79 (92) 95 10/24/18 22:20 98.4 77 16 129/77 99 Room Air 10/24/18 22:00 98.4 77 16 129/77 99 Room Air 10/24/18 20:00 98.1 77 16 127/68 99 Room Air 10/24/18 18:09 98.1 73 16 122/71 98 Room Air Intake and Output 10/24/18 10/25/18 19:00 07:00 Output Total 400 ml Balance -400 ml Output Urine Total 400 ml # Voids 1 2 Laboratory Tests 10/25/18 10:00: White Blood Count 8.4, Red Blood Count 2.99L, Hemoglobin 7.7#L, Hematocrit 23.1L , Mean Corpuscular Volume 77L, Mean Corpuscular Hemoglobin 25.9L, Mean Corpuscular Hemoglobin Concent 33.5, Red Cell Distribution Width 18.4H, Platelet Count 303, Mean Platelet Volume 5.2L, Neutrophils (%) (Auto) , Lymphocytes (%) (Auto) , Monocytes (%) (Auto) , Eosinophils (%) (Auto) , Basophils (%) (Auto) , Differential Total Cells Counted 100, Neutrophils % ( Manual) 88H, Lymphocytes % (Manual) 5L, Monocytes % (Manual) 5, Eosinophils % ( Manual) 1, Basophils % (Manual) 1, Band Neutrophils 0, Nucleated Red Blood Cells 4, Platelet Estimate Adequate, Platelet Morphology Normal, Polychromasia 2 +, Hypochromasia 2+, Anisocytosis 2+, Microcytosis 2+, Schistocytes 2+, Prothrombin Time 10.7, Prothromb Time International Ratio 1.0, Activated Partial Thromboplast Time 22L, Sodium Level 141, Potassium Level 3.6, Chloride Level 111H, Carbon Dioxide Level 25, Anion Gap 5, Blood Urea Nitrogen 16, Creatinine 0.9, Estimat Glomerular Filtration Rate > 60, Glucose Level 92, Calcium Level 7.8L, Total Bilirubin 0.9, Aspartate Amino Transf (AST/SGOT) 17, Alanine Aminotransferase (ALT/SGPT) 18, Alkaline Phosphatase 49, Total Protein 4.8L, Albumin 2.5L, Globulin 2.3, Albumin/Globulin Ratio 1.1, Amylase Level 44, Lipase 220 Height (Feet): 5 Height (Inches): 10.00 Weight (Pounds): 175 Objective WDWN NCAT supple CTA RRR abd soft ND NT no edema Chava Sehffield MD Oct 25, 2018 17:26
--- NOTE | 2018-10-25 17:33 | Diagnostic Imaging Report ---
EXAM: US Duplex Bilateral Lower Extremity Veins CLINICAL HISTORY: DVT TECHNIQUE: Real-time duplex ultrasound scan of the bilateral lower extremity veins integrating B-mode two-dimensional vascular structure, Doppler spectral analysis, color flow Doppler imaging and compression. COMPARISON: No relevant prior studies available. FINDINGS: Right deep veins: Unremarkable. No DVT in the right common femoral, femoral, proximal deep femoral or popliteal veins. The veins demonstrate normal color flow, are normally compressible, with normal phasic flow and/or augmentation response. Right superficial veins: Unremarkable. No thrombus in the visualized right great saphenous vein. Left deep veins: Unremarkable. No DVT in the left common femoral, femoral, proximal deep femoral or popliteal veins. The veins demonstrate normal color flow, are normally compressible, with normal phasic flow and/or augmentation response. Left superficial veins: Unremarkable. No thrombus in the visualized left great saphenous vein. Soft tissues: No acute findings. IMPRESSION: No DVT.
--- NOTE | 2018-10-25 18:14 | History and Physical Report ---
DATE OF ADMISSION: 10/24/2018 TIME SEEN: at 10 a.m. CONSULTANTS: 1. Nelsy Salas M.D. 2. Sudheer Tavares M.D. 3. Trav Guillen M.D. CHIEF COMPLAINT: Lower GI bleed, dark stool, anemia, weakness, dizziness. BRIEF HISTORY: This is a 63-year-old male, who lives at home, presents with dark stool since yesterday who came to [place], diagnosed with lower GI bleed, severe anemia 5.4, weakness, and dizziness admitted to telemetry for further care. Currently, calm in bed, feeling little better, no complaint. REVIEW OF SYSTEMS: No chest pain. Slight short of breath. Slight nausea. No vomiting. No diarrhea. PAST MEDICAL M9LYRECC: Include hypertension and stomach ulcers. PAST SURGICAL HISTORY: Ulcer surgery. ALLERGIES: Denies. SOCIAL HISTORY: Positive smoke. Occasional alcohol. No intravenous drug abuse. FAMILY HISTORY: Noncontributory. PHYSICAL EXAMINATION: GENERAL: Calm in bed. Oriented x3, no acute distress. VITAL SIGNS: Temperature is 98 degrees, pulse 82, respirations 18, and blood pressure 119/79. CARDIOVASCULAR: No murmurs. LUNGS: Distant and clear. ABDOMEN: Bowel sounds positive. Nontender. Nondistended. EXTREMITIES: No cyanosis, clubbing, or edema. NEUROLOGIC: The patient moves all extremities, slightly weak. LABORATORY AND DIAGNOSTIC DATA: White count 14, hemoglobin and hematocrit 5.0/17, and platelets 429. BMP shows chloride 110, BUN 27, otherwise normal. INR is 1.0 and PTT is 20. Urine tox is negative. MEDICATIONS: Flomax, Neurontin, Lopressor, Protonix, , morphine, Zofran, Restoril, Benadryl, and nitroglycerin. ASSESSMENT: 1. Lower GI bleed. 2. Anemia. 3. Weakness. 4. Dizziness. 5. Hypertension. 6. History of ulcers. PLAN: 1. GI followup. 2. IV fluids. 3. Possible endoscopy. 4. Dietary evaluation. 5. CBC and BMP in the morning. Srinivas Singer D.O. DR: INEZ JOB#: [id number] CC:
--- NOTE | 2018-10-25 19:02 | NUR ---
HAND-OFF: Report given to Brisa Lee RN.
[2018-10-25 19:28] LABS: % IRON SATURATION 9 % (15-50); IRON 28 ug/dL (50-175); TOTAL IRON BINDING CAPACITY 312 ug/dL (250-450)
[2018-10-25 19:44] LABS: FERRITIN 28 NG/ML (8-388)
[2018-10-25 20:00] VITALS: BP 114/78
--- NOTE | 2018-10-25 20:16 | NUR ---
NURSE NOTES: Received 63 year old male, in bed awake, alert and verbally responsive. Patient denied any complaint of pain. No acute respiratory distress. Bed locked and in low position, side rails up X2, call light within reach.
[2018-10-25] MEDS: Iron Sucrose 100 MG in NS 55 ML IV SCH (21:28)
[2018-10-25] MEDS: Tamsulosin 0.4mg cap ORAL SCH (21:28)
--- NOTE | 2018-10-25 23:30 | NUR ---
HAND-OFF: Report given to WILBUR Pena.
[2018-10-26] VITALS: BP 127/79
[2018-10-26 04:00] VITALS: BP 127/84
[2018-10-26] MEDS: D5NS 1,000 ML IV SCH ×3 (04:25→22:21)
--- NOTE | 2018-10-26 07:20 | NUR ---
HAND-OFF: Report given to TRINH Roberts. Pt is in stable condition; plan of care endorsed.
--- NOTE | 2018-10-26 07:22 | NUR ---
NURSE NOTES: I received the patient awake and alert x4, sitting at the side of the bed. Patient did not display any signs of distress or SOB. Bed in the lowest position and call light within reach. I will continue to monitor the patient and implement care.
[2018-10-26 08:00] VITALS: BP 137/91
[2018-10-26 08:13] LABS: BASOPHILS % (AUTO) 0.7 % (0.0-2.0); EOSINOPHILS % (AUTO) 2.6 % (0.0-3.0); HEMATOCRIT 27.9 % (42.0-52.0); HEMOGLOBIN 9.1 G/DL (14.2-18.0); LYMPHOCYTES % (AUTO) 11.4 % (20.0-45.0); MEAN CORPUSCULAR VOLUME 79 FL (80-99); MONOCYTES % (AUTO) 8.1 % (1.0-10.0); NEUTROPHILS % (AUTO) 77.2 % (45.0-75.0); PLATELET COUNT 315 K/UL (150-450); RED BLOOD COUNT 3.54 M/UL (4.70-6.10); RED CELL DISTRIBUTION WIDTH 19.4 % (11.6-14.8); WHITE BLOOD COUNT 11.4 K/UL (4.8-10.8)
[2018-10-26] MEDS: Pantoprazole Inj IVP SCH (08:19)
[2018-10-26] MEDS: Metoprolol Tartrate 50mg tab ORAL SCH ×2 (08:19→22:20)
[2018-10-26 08:30] LABS: ANION GAP 9 mmol/L (5-15); BLOOD UREA NITROGEN 9 mg/dL (7-18); CALCIUM 8.4 MG/DL (8.5-10.1); CARBON DIOXIDE 24 MMOL/L (21-32); CHLORIDE 109 MMOL/L (98-107); POTASSIUM 3.5 MMOL/L (3.5-5.1); SODIUM 142 MMOL/L (136-145)
[2018-10-26 11:50] VITALS: BP 127/81
--- NOTE | 2018-10-26 11:59 | GI Progress Note ---
Assessment/Plan Problems: (1) Iron deficiency ICD Codes: E61.1 - Iron deficiency SNOMED: 51613690 (2) Anemia ICD Codes: D64.9 - Anemia, unspecified SNOMED: 867177415, 000915017 Qualifiers: Qualified Codes: D64.9 - Anemia, unspecified (3) LGI bleed ICD Codes: K92.2 - Gastrointestinal hemorrhage, unspecified SNOMED: 67820222, 872606803 Status: progressing Status Narrative Discussed with Dr. Tavares Assessment/Plan Assessment - GIB - s/p gastric bypass - microcytic anemia Recommendations - hold off on Friday EGD/Colon, GI procedures if necessary - Get results of recent EGD/Colon done in [facility], still pending. - transfuse PRN - IV Fe - ppi - OB s rule out any GI Bleed - fu labs The patient was seen and examined at bedside and all new and available data was reviewed in the patients chart. I agree with the above findings, impression and plan. (Patient seen earlier today. Signature stamp does not reflect patient encounter time.). - Sudheer Tavares MD Subjective Gastrointestinal/Abdominal: Reports: no symptoms Objective Last 24 Hour Vital Signs Date Time Temp Pulse Resp B/P (MAP) Pulse Ox O2 Delivery O2 Flow Rate FiO2 10/26/18 11:50 98.7 63 20 127/81 (96) 98 10/26/18 09:00 Room Air 10/26/18 08:19 83 137/91 10/26/18 08:00 98.4 83 20 137/91 (106) 99 10/26/18 07:32 81 10/26/18 04:00 97.6 55 20 127/84 (98) 99 10/26/18 04:00 53 10/26/18 00:00 97.9 59 18 127/79 (95) 100 10/26/18 00:00 58 10/25/18 21:27 68 114/78 10/25/18 21:00 Room Air 10/25/18 20:00 66 10/25/18 20:00 98.1 68 18 114/78 (90) 100 10/25/18 16:00 64 10/25/18 16:00 99.0 62 18 127/84 (98) 98 10/25/18 12:00 64 10/25/18 12:00 97.4 61 18 132/90 (104) 99 Intake and Output 10/25/18 10/26/18 19:00 07:00 Intake Total 600 ml Output Total 1050 ml 800 ml Balance -450 ml -800 ml Intake Oral 600 ml Output Urine Total 1050 ml 800 ml # Bowel Movements 1 Laboratory Tests Test 10/25/18 18:30 10/26/18 07:42 Iron Level 28 ug/dL (50-175) L Total Iron Binding Capacity 312 ug/dL (250-450) Percent Iron Saturation 9 % (15-50) L Unsaturated Iron Binding 284 ug/dL (112-346) Ferritin 28 NG/ML (8-388) White Blood Count 11.4 K/UL (4.8-10.8) H Red Blood Count 3.54 M/UL (4.70-6.10) L Hemoglobin 9.1 G/DL (14.2-18.0) L Hematocrit 27.9 % (42.0-52.0) L Mean Corpuscular Volume 79 FL (80-99) L Mean Corpuscular Hemoglobin 25.6 PG (27.0-31.0) L Mean Corpuscular Hemoglobin Concent 32.4 G/DL (32.0-36.0) Red Cell Distribution Width 19.4 % (11.6-14.8) H Platelet Count 315 K/UL (150-450) Mean Platelet Volume 5.5 FL (6.5-10.1) L Neutrophils (%) (Auto) 77.2 % (45.0-75.0) H Lymphocytes (%) (Auto) 11.4 % (20.0-45.0) L Monocytes (%) (Auto) 8.1 % (1.0-10.0) Eosinophils (%) (Auto) 2.6 % (0.0-3.0) Basophils (%) (Auto) 0.7 % (0.0-2.0) Sodium Level 142 MMOL/L (136-145) Potassium Level 3.5 MMOL/L (3.5-5.1) Chloride Level 109 MMOL/L (98-107) H Carbon Dioxide Level 24 MMOL/L (21-32) Anion Gap 9 mmol/L (5-15) Blood Urea Nitrogen 9 mg/dL (7-18) Creatinine 1.0 MG/DL (0.55-1.30) Estimat Glomerular Filtration Rate > 60 mL/min (>60) Glucose Level 136 MG/DL (74-106) H Calcium Level 8.4 MG/DL (8.5-10.1) L Height (Feet): 5 Height (Inches): 10.00 Weight (Pounds): 175 General Appearance: WD/WN, no apparent distress, alert Cardiovascular: normal rate Respiratory/Chest: normal breath sounds, no respiratory distress Abdominal Exam: normal bowel sounds, non tender, soft Extremities: normal range of motion, non-tender Juju Sullivan NP Oct 26, 2018 11:59
--- NOTE | 2018-10-26 14:26 | General Progress Note ---
Assessment/Plan Problem List: (1) HTN (hypertension) ICD Codes: I10 - Essential (primary) hypertension SNOMED: 02761148 (2) Dizziness ICD Codes: R42 - Dizziness and giddiness SNOMED: 030433651, 305666968 (3) Iron deficiency ICD Codes: E61.1 - Iron deficiency SNOMED: 79420852 (4) Anemia ICD Codes: D64.9 - Anemia, unspecified SNOMED: 985760332, 461053030 Qualifiers: Qualified Codes: D64.9 - Anemia, unspecified (5) LGI bleed ICD Codes: K92.2 - Gastrointestinal hemorrhage, unspecified SNOMED: 06016434, 054496983 Status: unchanged Assessment/Plan pt diet transfuse prn gi f/u cbc bmp am Subjective Constitutional: Reports: weakness Allergies: Coded Allergies: No Known Allergies (Unverified , 10/23/18) All Systems: reviewed and negative except above Subjective calm in bed Objective Last 24 Hour Vital Signs Date Time Temp Pulse Resp B/P (MAP) Pulse Ox O2 Delivery O2 Flow Rate FiO2 10/26/18 11:50 98.7 63 20 127/81 (96) 98 10/26/18 11:41 63 10/26/18 09:00 Room Air 10/26/18 08:19 83 137/91 10/26/18 08:00 98.4 83 20 137/91 (106) 99 10/26/18 07:32 81 10/26/18 04:00 97.6 55 20 127/84 (98) 99 10/26/18 04:00 53 10/26/18 00:00 97.9 59 18 127/79 (95) 100 10/26/18 00:00 58 10/25/18 21:27 68 114/78 10/25/18 21:00 Room Air 10/25/18 20:00 66 10/25/18 20:00 98.1 68 18 114/78 (90) 100 10/25/18 16:00 64 10/25/18 16:00 99.0 62 18 127/84 (98) 98 Intake and Output 10/25/18 10/26/18 19:00 07:00 Intake Total 600 ml Output Total 1050 ml 800 ml Balance -450 ml -800 ml Intake Oral 600 ml Output Urine Total 1050 ml 800 ml # Bowel Movements 1 Laboratory Tests 10/25/18 18:30: Iron Level 28L, Total Iron Binding Capacity 312, Percent Iron Saturation 9L, Unsaturated Iron Binding 284, Ferritin 28 10/26/18 07:42: White Blood Count 11.4H, Red Blood Count 3.54L, Hemoglobin 9.1L, Hematocrit 27.9L, Mean Corpuscular Volume 79L, Mean Corpuscular Hemoglobin 25.6L, Mean Corpuscular Hemoglobin Concent 32.4, Red Cell Distribution Width 19.4H, Platelet Count 315, Mean Platelet Volume 5.5L, Neutrophils (%) (Auto) 77.2H, Lymphocytes (%) (Auto) 11.4L, Monocytes (%) (Auto) 8.1, Eosinophils (%) (Auto) 2.6, Basophils (%) (Auto) 0.7, Sodium Level 142, Potassium Level 3.5, Chloride Level 109H, Carbon Dioxide Level 24, Anion Gap 9, Blood Urea Nitrogen 9, Creatinine 1.0, Estimat Glomerular Filtration Rate > 60, Glucose Level 136H, Calcium Level 8.4L Height (Feet): 5 Height (Inches): 10.00 Weight (Pounds): 175 General Appearance: lethargic EENT: normal ENT inspection Neck: normal alignment Cardiovascular: normal peripheral pulses, normal rate, regular rhythm Respiratory/Chest: chest wall non-tender, lungs clear, normal breath sounds Abdomen: normal bowel sounds, non tender, soft Extremities: normal inspection Edema: no edema noted Arm (L), no edema noted Arm (R), no edema noted Leg (L), no edema noted Leg (R), no edema noted Pedal (L), no edema noted Pedal (R), no edema noted Generalized Neurologic: responsive, motor weakness Skin: normal pigmentation, warm/dry Srinivas Singer DO Oct 26, 2018 14:26
--- NOTE | 2018-10-26 14:44 | Pulmonology Progress Note ---
Assessment/Plan Problems: (1) LGI bleed (2) HTN (hypertension) (3) Anemia Assessment/Plan npo GI evaluation prbc prn symptomatic treatment check h/h check electrolytes Subjective ROS Limited/Unobtainable: No Constitutional: Reports: no symptoms HEENT: Repors: no symptoms Allergies: Coded Allergies: No Known Allergies (Unverified , 10/23/18) Objective Last 24 Hour Vital Signs Date Time Temp Pulse Resp B/P (MAP) Pulse Ox O2 Delivery O2 Flow Rate FiO2 10/26/18 11:50 98.7 63 20 127/81 (96) 98 10/26/18 11:41 63 10/26/18 09:00 Room Air 10/26/18 08:19 83 137/91 10/26/18 08:00 98.4 83 20 137/91 (106) 99 10/26/18 07:32 81 10/26/18 04:00 97.6 55 20 127/84 (98) 99 10/26/18 04:00 53 10/26/18 00:00 97.9 59 18 127/79 (95) 100 10/26/18 00:00 58 10/25/18 21:27 68 114/78 10/25/18 21:00 Room Air 10/25/18 20:00 66 10/25/18 20:00 98.1 68 18 114/78 (90) 100 10/25/18 16:00 64 10/25/18 16:00 99.0 62 18 127/84 (98) 98 Intake and Output 10/25/18 10/26/18 19:00 07:00 Intake Total 600 ml Output Total 1050 ml 800 ml Balance -450 ml -800 ml Intake Oral 600 ml Output Urine Total 1050 ml 800 ml # Bowel Movements 1 General Appearance: WD/WN HEENT: normocephalic, anicteric Respiratory/Chest: chest wall non-tender, lungs clear Cardiovascular: normal peripheral pulses, regular rhythm Abdomen: normal bowel sounds, no organomegaly Genitourinary: normal external genitalia Skin: no lesions Laboratory Tests 10/25/18 18:30: Iron Level 28L, Total Iron Binding Capacity 312, Percent Iron Saturation 9L, Unsaturated Iron Binding 284, Ferritin 28 10/26/18 07:42: White Blood Count 11.4H, Red Blood Count 3.54L, Hemoglobin 9.1L, Hematocrit 27.9L, Mean Corpuscular Volume 79L, Mean Corpuscular Hemoglobin 25.6L, Mean Corpuscular Hemoglobin Concent 32.4, Red Cell Distribution Width 19.4H, Platelet Count 315, Mean Platelet Volume 5.5L, Neutrophils (%) (Auto) 77.2H, Lymphocytes (%) (Auto) 11.4L, Monocytes (%) (Auto) 8.1, Eosinophils (%) (Auto) 2.6, Basophils (%) (Auto) 0.7, Sodium Level 142, Potassium Level 3.5, Chloride Level 109H, Carbon Dioxide Level 24, Anion Gap 9, Blood Urea Nitrogen 9, Creatinine 1.0, Estimat Glomerular Filtration Rate > 60, Glucose Level 136H, Calcium Level 8.4L Current Medications Medications (Trade) Dose Ordered Sig/Keyon Route PRN Reason Start Time Stop Time Status Last Admin Dose Admin Acetaminophen (Tylenol) 650 mg Q4H PRN ORAL fever (temp>100.5F) 10/24/18 21:30 11/23/18 21:29 Al Hydroxide/Mg Hydroxide (Mylanta II) 30 ml Q6H PRN ORAL dyspepsia 10/24/18 21:30 11/23/18 21:29 Dextrose (Dextrose 50%) 25 ml Q30M PRN IV Hypoglycemia 10/24/18 21:30 11/23/18 21:29 Dextrose (Dextrose 50%) 50 ml Q30M PRN IV Hypoglycemia 10/24/18 21:30 11/23/18 21:29 Dextrose/Sodium Chloride 1,000 ml @ 100 mls/hr Q10H IV 10/24/18 22:00 11/23/18 21:59 10/26/18 14:15 Diphenhydramine HCl (Benadryl) 25 mg Q6H PRN ORAL Itching/Pruritis 10/24/18 21:30 11/23/18 21:29 Gabapentin (Neurontin) 300 mg BID ORAL 10/25/18 09:00 11/24/18 08:59 10/26/18 08:18 Iron Sucrose 100 mg/Sodium Chloride 60 ml @ 240 mls/hr BEDTIME IV 10/25/18 21:00 10/29/18 21:14 10/25/18 21:28 Metoprolol Tartrate (Lopressor) 50 mg EVERY 12 HOURS ORAL 10/25/18 09:00 11/24/18 08:59 10/26/18 08:19 Morphine Sulfate (Morphine Sulfate) 2 mg Q4H PRN IVP severe Pain (Pain Scale 7-10) 10/24/18 21:30 10/31/18 21:29 Nitroglycerin (Ntg) 0.4 mg Q5M X 3 DOSES PRN SL Prn Chest Pain 10/24/18 21:30 11/23/18 21:29 Ondansetron HCl (Zofran) 4 mg Q6H PRN IVP Nausea & Vomiting 10/24/18 21:30 11/23/18 21:29 Pantoprazole (Protonix) 40 mg DAILY IVP 10/25/18 09:00 11/24/18 08:59 10/26/18 08:19 Polyethylene Glycol (Miralax) 17 gm HSPRN PRN ORAL Constipation 10/24/18 21:30 11/23/18 21:29 Tamsulosin HCl (Flomax) 0.4 mg BEDTIME ORAL 10/25/18 21:00 11/24/18 20:59 10/25/18 21:28 Temazepam (Restoril) 15 mg HSPRN PRN ORAL Insomnia 10/24/18 21:30 10/31/18 21:29 Nelsy Salas MD Oct 26, 2018 14:44
--- NOTE | 2018-10-26 15:18 | NUR ---
CASE MANAGEMENT:REVIEW 10/26/18 SI: LGIB. ANEMIA. HTN 98.7 63 20 99198 98% ON RA WBC+11.4 H/H-9.1/27.9 IS: IVF@100/HR IV VENOFER QHS LOPRESSOR PO Q12 IV PROTONIX QD : TELEMETRY STATUS DCP: FROM HOME
[2018-10-26 16:00] VITALS: BP 104/68
--- NOTE | 2018-10-26 19:30 | NUR ---
Hand-off report received from Alejandra TSANG with bedside rounds. Pt received in bed awake alert and oriented X4. Waiting for Med-Surg bed for transfer. Denies pain. Continue to monitor and assist. as needed.
[2018-10-26 20:00] VITALS: BP_SYST 118
--- NOTE | 2018-10-26 20:00 | NUR ---
Tele Strip data for 10/26/2018 @2000 should be filed under 10/27/2018 @ 0000 instead.
[2018-10-26] MEDS: Tamsulosin 0.4mg cap ORAL SCH (22:19)
[2018-10-26] MEDS: Iron Sucrose 100 MG in NS 55 ML IV SCH (22:19)
[2018-10-27] VITALS: BP 115/72
[2018-10-27 04:00] VITALS: BP 120/74
[2018-10-27 07:15] LABS: BASOPHILS % (AUTO) 1.2 % (0.0-2.0); HEMOGLOBIN 8.2 G/DL (14.2-18.0); LYMPHOCYTES % (AUTO) 19.1 % (20.0-45.0); MEAN CORPUSCULAR VOLUME 80 FL (80-99); MONOCYTES % (AUTO) 8.9 % (1.0-10.0); NEUTROPHILS % (AUTO) 67.8 % (45.0-75.0); PLATELET COUNT 299 K/UL (150-450); RED BLOOD COUNT 3.13 M/UL (4.70-6.10); RED CELL DISTRIBUTION WIDTH 20.7 % (11.6-14.8)
--- NOTE | 2018-10-27 07:15 | NUR ---
NURSE NOTES: I received the patient resting in bed. Patient does not display any signs of distress or SOB. Bed in the lowest position and call light within reach.
[2018-10-27 07:25] LABS: ANION GAP 6 mmol/L (5-15); BLOOD UREA NITROGEN 8 mg/dL (7-18); CARBON DIOXIDE 27 MMOL/L (21-32); CHLORIDE 112 MMOL/L (98-107); CREATININE 0.8 MG/DL (0.55-1.30); POTASSIUM 3.8 MMOL/L (3.5-5.1); SODIUM 144 MMOL/L (136-145)
[2018-10-27 08:00] VITALS: BP 124/83
[2018-10-27] MEDS: Metoprolol Tartrate 50mg tab ORAL SCH ×2 (08:40→21:00)
[2018-10-27] MEDS: Pantoprazole Inj IVP SCH (08:40)
[2018-10-27] MEDS: D5NS 1,000 ML IV SCH ×2 (08:45→15:39)
--- NOTE | 2018-10-27 09:09 | Cardiac Electrophysiology PN ---
Subjective Subjective [id number] Objective Last 24 Hour Vital Signs Date Time Temp Pulse Resp B/P (MAP) Pulse Ox O2 Delivery O2 Flow Rate FiO2 10/27/18 08:40 77 124/83 10/27/18 08:00 98.7 77 20 124/83 (97) 100 10/27/18 04:00 99.9 64 16 120/74 (89) 100 10/27/18 04:00 64 10/27/18 00:00 61 10/27/18 00:00 97.6 85 16 115/72 (86) 16 10/26/18 22:20 83 118/74 10/26/18 21:00 Room Air 10/26/18 20:00 61 10/26/18 20:00 98.1 83 16 118/ 100 83 10/26/18 16:00 97.8 81 20 104/68 (80) 92 10/26/18 15:16 77 10/26/18 11:50 98.7 63 20 127/81 (96) 98 10/26/18 11:41 63 Intake and Output 10/26/18 10/27/18 19:00 07:00 Intake Total 1710 ml Output Total 2100 ml 850 ml Balance -390 ml -850 ml Intake Oral 810 ml IV Total 900 ml Output Urine Total 2100 ml 850 ml Laboratory Tests Test 10/26/18 13:30 10/27/18 05:50 Stool Occult Blood Pending White Blood Count 9.0 K/UL (4.8-10.8) Red Blood Count 3.13 M/UL (4.70-6.10) L Hemoglobin 8.2 G/DL (14.2-18.0) L Hematocrit 25.0 % (42.0-52.0) L Mean Corpuscular Volume 80 FL (80-99) Mean Corpuscular Hemoglobin 26.0 PG (27.0-31.0) L Mean Corpuscular Hemoglobin Concent 32.7 G/DL (32.0-36.0) Red Cell Distribution Width 20.7 % (11.6-14.8) H Platelet Count 299 K/UL (150-450) Mean Platelet Volume 5.5 FL (6.5-10.1) L Neutrophils (%) (Auto) 67.8 % (45.0-75.0) Lymphocytes (%) (Auto) 19.1 % (20.0-45.0) L Monocytes (%) (Auto) 8.9 % (1.0-10.0) Eosinophils (%) (Auto) 3.0 % (0.0-3.0) Basophils (%) (Auto) 1.2 % (0.0-2.0) Sodium Level 144 MMOL/L (136-145) Potassium Level 3.8 MMOL/L (3.5-5.1) Chloride Level 112 MMOL/L (98-107) H Carbon Dioxide Level 27 MMOL/L (21-32) Anion Gap 6 mmol/L (5-15) Blood Urea Nitrogen 8 mg/dL (7-18) Creatinine 0.8 MG/DL (0.55-1.30) Estimat Glomerular Filtration Rate > 60 mL/min (>60) Glucose Level 86 MG/DL (74-106) Calcium Level 8.0 MG/DL (8.5-10.1) L Trav Guillen MD Oct 27, 2018 09:09
--- NOTE | 2018-10-27 11:40 | Pulmonology Progress Note ---
Assessment/Plan Problems: (1) LGI bleed (2) HTN (hypertension) (3) Anemia Assessment/Plan npo hem dropped form 9 to 8 GI evaluation prbc prn symptomatic treatment check h/h check electrolytes prbc prn Subjective ROS Limited/Unobtainable: No Constitutional: Reports: no symptoms HEENT: Repors: no symptoms Respiratory: Reports: no symptoms Allergies: Coded Allergies: No Known Allergies (Unverified , 10/23/18) Objective Last 24 Hour Vital Signs Date Time Temp Pulse Resp B/P (MAP) Pulse Ox O2 Delivery O2 Flow Rate FiO2 10/27/18 09:00 Room Air 10/27/18 08:40 77 124/83 10/27/18 08:00 98.7 77 20 124/83 (97) 100 10/27/18 07:59 93 10/27/18 04:00 99.9 64 16 120/74 (89) 100 10/27/18 04:00 64 10/27/18 00:00 61 10/27/18 00:00 97.6 85 16 115/72 (86) 16 10/26/18 22:20 83 118/74 10/26/18 21:00 Room Air 10/26/18 20:00 61 10/26/18 20:00 98.1 83 16 118/ 100 83 10/26/18 16:00 97.8 81 20 104/68 (80) 92 10/26/18 15:16 77 10/26/18 11:50 98.7 63 20 127/81 (96) 98 10/26/18 11:41 63 Intake and Output 10/26/18 10/27/18 19:00 07:00 Intake Total 1710 ml Output Total 2100 ml 850 ml Balance -390 ml -850 ml Intake Oral 810 ml IV Total 900 ml Output Urine Total 2100 ml 850 ml General Appearance: WD/WN HEENT: normocephalic, atraumatic Respiratory/Chest: chest wall non-tender, lungs clear Cardiovascular: normal peripheral pulses, normal rate Abdomen: normal bowel sounds, soft, non tender Genitourinary: normal external genitalia Extremities: no clubbing Neurologic/Psychiatric: competency evaluated nurse aide II-XII grossly normal Laboratory Tests 10/26/18 13:30: Stool Occult Blood [Pending] 10/27/18 05:50: White Blood Count 9.0, Red Blood Count 3.13L, Hemoglobin 8.2L, Hematocrit 25.0L , Mean Corpuscular Volume 80, Mean Corpuscular Hemoglobin 26.0L, Mean Corpuscular Hemoglobin Concent 32.7, Red Cell Distribution Width 20.7H, Platelet Count 299, Mean Platelet Volume 5.5L, Neutrophils (%) (Auto) 67.8, Lymphocytes (%) (Auto) 19.1L, Monocytes (%) (Auto) 8.9, Eosinophils (%) (Auto) 3.0, Basophils (%) (Auto) 1.2, Sodium Level 144, Potassium Level 3.8, Chloride Level 112H, Carbon Dioxide Level 27, Anion Gap 6, Blood Urea Nitrogen 8, Creatinine 0.8, Estimat Glomerular Filtration Rate > 60, Glucose Level 86, Calcium Level 8.0L Current Medications Medications (Trade) Dose Ordered Sig/Keyon Route PRN Reason Start Time Stop Time Status Last Admin Dose Admin Acetaminophen (Tylenol) 650 mg Q4H PRN ORAL fever (temp>100.5F) 10/24/18 21:30 11/23/18 21:29 Al Hydroxide/Mg Hydroxide (Mylanta II) 30 ml Q6H PRN ORAL dyspepsia 10/24/18 21:30 11/23/18 21:29 Clonidine HCl (Catapres Tab) 0.1 mg Q4H PRN ORAL sbp>170 10/27/18 09:15 11/26/18 09:14 Dextrose (Dextrose 50%) 25 ml Q30M PRN IV Hypoglycemia 10/24/18 21:30 11/23/18 21:29 Dextrose (Dextrose 50%) 50 ml Q30M PRN IV Hypoglycemia 10/24/18 21:30 11/23/18 21:29 Dextrose/Sodium Chloride 1,000 ml @ 100 mls/hr Q10H IV 10/24/18 22:00 11/23/18 21:59 10/27/18 08:45 Diphenhydramine HCl (Benadryl) 25 mg Q6H PRN ORAL Itching/Pruritis 10/24/18 21:30 11/23/18 21:29 Gabapentin (Neurontin) 300 mg BID ORAL 10/25/18 09:00 11/24/18 08:59 10/27/18 08:40 Iron Sucrose 100 mg/Sodium Chloride 60 ml @ 240 mls/hr BEDTIME IV 10/25/18 21:00 10/29/18 21:14 10/26/18 22:19 Metoprolol Tartrate (Lopressor) 50 mg EVERY 12 HOURS ORAL 10/25/18 09:00 11/24/18 08:59 10/27/18 08:40 Morphine Sulfate (Morphine Sulfate) 2 mg Q4H PRN IVP severe Pain (Pain Scale 7-10) 10/24/18 21:30 10/31/18 21:29 Nitroglycerin (Ntg) 0.4 mg Q5M X 3 DOSES PRN SL Prn Chest Pain 10/24/18 21:30 11/23/18 21:29 Ondansetron HCl (Zofran) 4 mg Q6H PRN IVP Nausea & Vomiting 10/24/18 21:30 11/23/18 21:29 Pantoprazole (Protonix) 40 mg DAILY IVP 10/25/18 09:00 11/24/18 08:59 10/27/18 08:40 Polyethylene Glycol (Miralax) 17 gm HSPRN PRN ORAL Constipation 10/24/18 21:30 11/23/18 21:29 Tamsulosin HCl (Flomax) 0.4 mg BEDTIME ORAL 10/25/18 21:00 11/24/18 20:59 10/26/18 22:19 Temazepam (Restoril) 15 mg HSPRN PRN ORAL Insomnia 10/24/18 21:30 10/31/18 21:29 Nelsy Salas MD Oct 27, 2018 11:40
[2018-10-27 11:50] VITALS: BP 119/77
--- NOTE | 2018-10-27 13:43 | GI Progress Note ---
Assessment/Plan Problems: (1) Iron deficiency ICD Codes: E61.1 - Iron deficiency SNOMED: 86139062 (2) Anemia ICD Codes: D64.9 - Anemia, unspecified SNOMED: 490107059, 492516469 Qualifiers: Qualified Codes: D64.9 - Anemia, unspecified (3) LGI bleed ICD Codes: K92.2 - Gastrointestinal hemorrhage, unspecified SNOMED: 60447966, 592114423 Status: unchanged Status Narrative Discussed with Dr. Tavares Assessment/Plan Assessment - GIB - s/p gastric bypass - microcytic anemia Unable to obtain operative results from the [facility] Recommendations We will schedule patient for EGD and colonoscopy tomorrow given severe anemia and positive OB stool -Clear liquid diet now, n.p.o. at midnight -Hold all blood thinners - transfuse PRN - IV Fe - ppi - fu labs The patient was seen and examined at bedside and all new and available data was reviewed in the patients chart. I agree with the above findings, impression and plan. (Patient seen earlier today. Signature stamp does not reflect patient encounter time.). - Sduheer Tavares MD Subjective Gastrointestinal/Abdominal: Reports: no symptoms Objective Last 24 Hour Vital Signs Date Time Temp Pulse Resp B/P (MAP) Pulse Ox O2 Delivery O2 Flow Rate FiO2 10/27/18 11:58 58 10/27/18 11:50 98.2 68 20 119/77 (91) 100 10/27/18 09:00 Room Air 10/27/18 08:40 77 124/83 10/27/18 08:00 98.7 77 20 124/83 (97) 100 10/27/18 07:59 93 10/27/18 04:00 99.9 64 16 120/74 (89) 100 10/27/18 04:00 64 10/27/18 00:00 61 10/27/18 00:00 97.6 85 16 115/72 (86) 16 10/26/18 22:20 83 118/74 10/26/18 21:00 Room Air 10/26/18 20:00 61 10/26/18 20:00 98.1 83 16 118/ 100 83 10/26/18 16:00 97.8 81 20 104/68 (80) 92 10/26/18 15:16 77 Intake and Output 10/26/18 10/27/18 19:00 07:00 Intake Total 1710 ml Output Total 2100 ml 850 ml Balance -390 ml -850 ml Intake Oral 810 ml IV Total 900 ml Output Urine Total 2100 ml 850 ml Laboratory Tests Test 10/27/18 05:50 White Blood Count 9.0 K/UL (4.8-10.8) Red Blood Count 3.13 M/UL (4.70-6.10) L Hemoglobin 8.2 G/DL (14.2-18.0) L Hematocrit 25.0 % (42.0-52.0) L Mean Corpuscular Volume 80 FL (80-99) Mean Corpuscular Hemoglobin 26.0 PG (27.0-31.0) L Mean Corpuscular Hemoglobin Concent 32.7 G/DL (32.0-36.0) Red Cell Distribution Width 20.7 % (11.6-14.8) H Platelet Count 299 K/UL (150-450) Mean Platelet Volume 5.5 FL (6.5-10.1) L Neutrophils (%) (Auto) 67.8 % (45.0-75.0) Lymphocytes (%) (Auto) 19.1 % (20.0-45.0) L Monocytes (%) (Auto) 8.9 % (1.0-10.0) Eosinophils (%) (Auto) 3.0 % (0.0-3.0) Basophils (%) (Auto) 1.2 % (0.0-2.0) Sodium Level 144 MMOL/L (136-145) Potassium Level 3.8 MMOL/L (3.5-5.1) Chloride Level 112 MMOL/L (98-107) H Carbon Dioxide Level 27 MMOL/L (21-32) Anion Gap 6 mmol/L (5-15) Blood Urea Nitrogen 8 mg/dL (7-18) Creatinine 0.8 MG/DL (0.55-1.30) Estimat Glomerular Filtration Rate > 60 mL/min (>60) Glucose Level 86 MG/DL (74-106) Calcium Level 8.0 MG/DL (8.5-10.1) L Height (Feet): 5 Height (Inches): 10.00 Weight (Pounds): 175 General Appearance: WD/WN, no apparent distress, alert Cardiovascular: normal rate Respiratory/Chest: normal breath sounds, no respiratory distress Abdominal Exam: normal bowel sounds, non tender, soft Extremities: normal range of motion, non-tender Juju Sullivan NP Oct 27, 2018 13:43
--- NOTE | 2018-10-27 13:50 | General Progress Note ---
Assessment/Plan Problem List: (1) HTN (hypertension) ICD Codes: I10 - Essential (primary) hypertension SNOMED: 83556849 (2) Dizziness ICD Codes: R42 - Dizziness and giddiness SNOMED: 959628888, 246425760 (3) Iron deficiency ICD Codes: E61.1 - Iron deficiency SNOMED: 33791270 (4) Anemia ICD Codes: D64.9 - Anemia, unspecified SNOMED: 081031812, 319789839 Qualifiers: Qualified Codes: D64.9 - Anemia, unspecified (5) LGI bleed ICD Codes: K92.2 - Gastrointestinal hemorrhage, unspecified SNOMED: 07610260, 099456818 Status: stable, progressing Assessment/Plan pt adv diet transfuse prn gi f/u cbc bmp am Subjective Constitutional: Reports: weakness Allergies: Coded Allergies: No Known Allergies (Unverified , 10/23/18) All Systems: reviewed and negative except above Subjective katya liq diet calm in bed Objective Last 24 Hour Vital Signs Date Time Temp Pulse Resp B/P (MAP) Pulse Ox O2 Delivery O2 Flow Rate FiO2 10/27/18 11:58 58 10/27/18 11:50 98.2 68 20 119/77 (91) 100 10/27/18 09:00 Room Air 10/27/18 08:40 77 124/83 10/27/18 08:00 98.7 77 20 124/83 (97) 100 10/27/18 07:59 93 10/27/18 04:00 99.9 64 16 120/74 (89) 100 10/27/18 04:00 64 10/27/18 00:00 61 10/27/18 00:00 97.6 85 16 115/72 (86) 16 10/26/18 22:20 83 118/74 10/26/18 21:00 Room Air 10/26/18 20:00 61 10/26/18 20:00 98.1 83 16 118/ 100 83 10/26/18 16:00 97.8 81 20 104/68 (80) 92 10/26/18 15:16 77 Intake and Output 10/26/18 10/27/18 19:00 07:00 Intake Total 1710 ml Output Total 2100 ml 850 ml Balance -390 ml -850 ml Intake Oral 810 ml IV Total 900 ml Output Urine Total 2100 ml 850 ml Laboratory Tests 10/27/18 05:50: White Blood Count 9.0, Red Blood Count 3.13L, Hemoglobin 8.2L, Hematocrit 25.0L , Mean Corpuscular Volume 80, Mean Corpuscular Hemoglobin 26.0L, Mean Corpuscular Hemoglobin Concent 32.7, Red Cell Distribution Width 20.7H, Platelet Count 299, Mean Platelet Volume 5.5L, Neutrophils (%) (Auto) 67.8, Lymphocytes (%) (Auto) 19.1L, Monocytes (%) (Auto) 8.9, Eosinophils (%) (Auto) 3.0, Basophils (%) (Auto) 1.2, Sodium Level 144, Potassium Level 3.8, Chloride Level 112H, Carbon Dioxide Level 27, Anion Gap 6, Blood Urea Nitrogen 8, Creatinine 0.8, Estimat Glomerular Filtration Rate > 60, Glucose Level 86, Calcium Level 8.0L Height (Feet): 5 Height (Inches): 10.00 Weight (Pounds): 175 General Appearance: lethargic EENT: normal ENT inspection Neck: normal alignment Cardiovascular: normal peripheral pulses, normal rate, regular rhythm Respiratory/Chest: chest wall non-tender, lungs clear, normal breath sounds Abdomen: normal bowel sounds, non tender, soft Extremities: normal inspection Edema: no edema noted Arm (L), no edema noted Arm (R), no edema noted Leg (L), no edema noted Leg (R), no edema noted Pedal (L), no edema noted Pedal (R), no edema noted Generalized Neurologic: responsive, motor weakness Skin: normal pigmentation, warm/dry Srinivas Singer DO Oct 27, 2018 13:50
--- NOTE | 2018-10-27 14:33 | NUR ---
CASE MANAGEMENT:REVIEW 10/27/18 SI: GIB. ANEMIA S/P 4 UNITS PRBC'S 98.2 68 20 119/77 100% ON RA H/H-8.2/25.0 IS: MAG CITRATE PO X1 MIRALAX PO X1 IVF@75/HR IV VENOFER QHS LOPRESSOR PO Q12 : TELEMETRY STATUS DCP: FROM HOME PLAN: EGD/COLONOSCOPY SCHEDULED FOR TOMORROW
[2018-10-27 16:00] VITALS: BP 127/82
[2018-10-27] MEDS ORDERED: Bisacodyl EC 5mg tab ORAL SCH (16:00)
[2018-10-27] MEDS ORDERED: Magnesium Citrate Liq Btl ORAL ONE (16:00)
[2018-10-27] MEDS ORDERED: Polyethylene Glycol 238gm bottle ORAL ONE (16:00)
--- NOTE | 2018-10-27 17:00 | Cardiology Report ---
APPROVED REPORT EXAM: Two-dimensional and M-mode echocardiogram with Doppler and color Doppler. INDICATION Hypertension/HCVD M-Mode DIMENSIONS IVSd1.1 (0.7-1.1cm)Left Atrium (MM)4.1 (1.6-4.0cm) LVDd4.9 (3.5-5.6cm)Aortic Root3.4 (2.0-3.7cm) PWd1.4 (0.7-1.1cm)Aortic Cusp Exc.2.2 (1.5-2.0cm) LVDs3.1 (2.5-4.0cm) PWs1.5 cm Normal left ventricular chamber size, systolic function and wall motion. Left ventricular ejection fraction estimated to be 65 %. No evidence of pericardial effusion Borderline mild left ventricular hypertrophy by 2D. All other cardiac chamber sizes are within normal limits. Mild focal aortic valve sclerosis with adequate cusp excursion. Mildly thickened mitral valve leaflets with normal excursion. Mild mitral annulus and aortic root calcification. Pulmonic valve not well visualized. Normal tricuspid valve structure. IVC measured at 2.1 with mild physiologic collapse. A color flow and spectral Doppler study was performed and revealed: Mild aortic regurgitation. Trace to mild mitral regurgitation. Mitral diastolic velocities suggest mildly reduced left ventricular relaxation c/w mild diastolic dysfunction (Grade I). Trace to mild tricuspid regurgitation. Tricuspid systolic velocities suggests peak right ventricular systolic pressure of 37 mmHg, consistent with mild pulmonary hypertension.
--- NOTE | 2018-10-27 18:45 | Consultation ---
DATE OF CONSULTATION: 10/27/2018 CARDIOLOGY CONSULTATION CONSULTING PHYSICIAN: Trav Guillen M.D. REFERRING PHYSICIAN: Srinivas Singer D.O. REASON FOR CONSULTATION: Hypertension and tachycardia. HISTORY OF PRESENT ILLNESS: The patient is a 63-year-old gentleman with history of hypertension and stomach ulcers presented to the emergency room for dark stools. The patient has had severe anemia, hemoglobin 5.4 and GI bleed. The patient also felt weak and dizzy. The patient was admitted to telemetry and a Cardiology consultation was obtained for management tachycardia and hypertension. REVIEW OF SYSTEMS: Review of systems was negative other than what was mentioned in the history of present illness. PAST MEDICAL HISTORY: Hypertension, stomach ulcer. PAST SURGICAL HISTORY: Includes ulcer surgery. ALLERGIES: He has no known drug allergies. PHYSICAL EXAMINATION: VITAL SIGNS: Blood pressure is 124/83, pulse 77, respirations 18, and he is afebrile. HEAD AND NECK: Showed no JVD. LUNGS: Clear. CARDIOVASCULAR: Regular S1 and S2 with no gallop or murmur. ABDOMEN: Soft. EXTREMITIES: No pitting edema. LABORATORY AND DIAGNOSTIC DATA: White count of 9, hemoglobin initially was 5.5, transfusion today is 8.2, hematocrit 25, platelet count is 299. Sodium 142, potassium 3.8, BUN 8, creatinine 0.8. Troponin is negative. His EKG showed normal sinus rhythm, normal electrocardiogram. ASSESSMENT AND PLAN: 1. History of hypertension. Blood pressure stable on metoprolol 50 mg b.i.d. that would be continued. We will get an echocardiogram to evaluate for ejection fraction and wall motion abnormality. 2. Iron-deficiency anemia due to lower GI bleed. The patient is status post gastric bypass. Awaiting results of EGD, colonoscopy which was done in [place]. The patient is on iron and proton pump inhibitor. 3. Tachycardia due to GI bleed which has resolved. Continue . Thank you very much, Dr. Singer for allowing me to participate in the care of this patient. Please do not hesitate to contact me for any questions regarding my evaluation. Sincerely, Trav Guillen M.D. DR: Brenda JOB#: [id number] CC:
--- NOTE | 2018-10-27 19:23 | NUR ---
HAND-OFF: Report given to TRINH Polo.
--- NOTE | 2018-10-27 19:24 | NUR ---
NURSE NOTES: Received report from Cieol Noble RN. Pt is sleeping w/o distress in RA, easily arousable by voice stimuli. Safety measures are applied w/ bed in lowest position, side rails up x2, and breaks are engaged. Call light and side table are w/in reach. Pt will be kep in midnight NPO for GI procedures tomorrow. Will follow plans of care.
[2018-10-27 20:00] VITALS: BP 118/70
[2018-10-27] MEDS: Iron Sucrose 100 MG in NS 55 ML IV SCH (21:00)
[2018-10-27] MEDS: Tamsulosin 0.4mg cap ORAL SCH (21:00)
[2018-10-27] MEDS ORDERED: Fleet's Enema 133ml RECTAL ONE (23:00)
[2018-10-28] VITALS (10 sets, daily range): BP systolic 113–154; BP diastolic 72–90
[2018-10-28] MEDS: D5NS 1,000 ML IV SCH ×2 (02:13→14:21)
--- NOTE | 2018-10-28 05:50 | NUR ---
NURSE NOTES: Enema was given at night and BM was light brown liquid with particles in it. Will report to Radiology dept and next shift nurse. Addendum: 10/28/18 at 0643 by STEPHANIE LYNCH RN Called and left message to Juju Sullivan NP at regarding result of BM in brown colored liq. with particles. Also, it is noticed to Maximo at radiology dept that GI prep is not ready. Addendum: 10/28/18 at 0650 by STEPHANIE LYNCH RN Dr. Tavares gave TO of mehrans Enema, once. Will carry out the order.
[2018-10-28] MEDS ORDERED: Fleet's Enema 133ml RECTAL SCH (07:00)
--- NOTE | 2018-10-28 07:30 | NUR ---
HAND-OFF: Report given to Madison Pearce Rn. Pt had clear liq diet in the morning. Reported to Carmine, radiology dept. Enema was given after clear liq. breakfast, BM is light yellow colored liq. Endorsed to day shift nurse.
--- NOTE | 2018-10-28 07:32 | NUR ---
NURSE NOTES: Received report from TRINH Polo. Patient is in stable condition. No acute distress/SOB noted. Patient had clear liquid diet although pt has EGD and colonoscopy procedures. Will continue plan of care.
[2018-10-28 08:08] LABS: BASOPHILS % (AUTO) 0.8 % (0.0-2.0); EOSINOPHILS % (AUTO) 4.2 % (0.0-3.0); LYMPHOCYTES % (AUTO) 19.8 % (20.0-45.0); MEAN CORPUSCULAR VOLUME 83 FL (80-99); MONOCYTES % (AUTO) 8.1 % (1.0-10.0); NEUTROPHILS % (AUTO) 67.1 % (45.0-75.0); PLATELET COUNT 292 K/UL (150-450); RED BLOOD COUNT 3.49 M/UL (4.70-6.10); WHITE BLOOD COUNT 7.8 K/UL (4.8-10.8)
[2018-10-28 08:23] LABS: ANION GAP 8 mmol/L (5-15); BLOOD UREA NITROGEN 6 mg/dL (7-18); CARBON DIOXIDE 22 MMOL/L (21-32); CHLORIDE 111 MMOL/L (98-107); CREATININE 0.9 MG/DL (0.55-1.30); POTASSIUM 3.9 MMOL/L (3.5-5.1); SODIUM 141 MMOL/L (136-145)
[2018-10-28] MEDS: Pantoprazole Inj IVP SCH (08:26)
[2018-10-28] MEDS: Metoprolol Tartrate 50mg tab ORAL SCH (08:32)
[2018-10-28] MEDS ORDERED: Tubing IV Secondary IV ONE (11:15)
[2018-10-28] MEDS ORDERED: D5NS 1000ml IV ONE (11:15)
--- NOTE | 2018-10-28 11:16 | NUR ---
NURSE NOTES: Patient is in stable condition and went down GI lab for EGD and colonoscopy.
--- NOTE | 2018-10-28 11:49 | Pre-Procedure Note/Attestation ---
Pre-Procedure Note/Attestation Complete Prior to Procedure Planned Procedure: not applicable Procedure Narrative: esophagogastroduodenoscopy and colonoscopy Indications for Procedure Pre-Operative Diagnosis: anemia Attestation I attest that I discussed the nature of the procedure; its benefits; risks and complications; and alternatives (and the risks and benefits of such alternatives ), prior to the procedure, with the patient (or the patient's legal retail customer service representative). I attest that, if there was a reasonable possibility of needing a blood transfusion, the patient (or the patient's legal retail customer service representative) was given the [facility] standardized written summary, pursuant to the [place] Blood Safety Act ([place] Health and Safety Code # 1645, as amended). I attest that I re-evaluated the patient just prior to the surgery and that there has been no change in the patient's H&P, except as documented below: Sudheer Tavares MD Oct 28, 2018 11:49
[2018-10-28] MEDS ORDERED: NS 500ML IVPB ONE (11:58)
[2018-10-28] MEDS ORDERED: Propofol 200mg/20ml IV ONE (12:00)
[2018-10-28] MEDS ORDERED: Lidocaine 1% MPF 10mg/ml 5ml ONE (12:00)
[2018-10-28] MEDS ORDERED: Midazolam 2mg/2ml Inj ONE (12:00)
--- NOTE | 2018-10-28 12:18 | Anethesia Preoperative Eval ---
Anesthesia Pre-op PMH/ROS General Date of Evaluation: Oct 28, 2018 Time of Evaluation: 11:58 Anesthesiologist: Josias ASA Score: ASA 2 Mallampati Score Class I : Soft palate, uvula, fauces, pillars visible Class II: Soft palate, uvula, fauces visible Class III: Soft palate, base of uvula visible Class IV: Only hard plate visible Mallampati Classification: Class II Surgeon: Chaitanya Diagnosis: Lower GI bleed, anemia Surgical Procedure: EGD/Colonoscopy Anesthesia History: none Family History: no anesthesia problems Allergies: Coded Allergies: No Known Allergies (Unverified , 10/23/18) Medications: see eMAR Patient NPO?: Yes NPO Date: Oct 28, 2018 NPO Time: 07:00 Past Medical History Cardiovascular: Reports: HTN Pulmonary: Denies: asthma, COPD, NOLBERTO, other Gastrointestinal/Genitourinary: Reports: other - stomach ulcers Neurologic/Psychiatric: Reports: other - head trauma Endocrine: Denies: DM, hypothyroidism, steroids, other Hematology/Immune: Reports: anemia Musculoskeletal/Integumentary: Denies: OA, RA, DJD, DDD, edema, other Anesthesia Pre-op Phys. Exam Physician Exam Last Vital Signs Date Time Temp Pulse Resp B/P (MAP) Pulse Ox O2 Delivery O2 Flow Rate FiO2 10/28/18 09:00 Room Air 10/28/18 08:32 55 142/86 10/28/18 08:00 98.8 21 98 Constitutional: NAD Neurologic: CN 2-12 intact Cardiovascular: RRR Respiratory: CTA Gastrointestinal: S/NT/ND Airway Exam Mallampati Score: Class II MO: full ROM: full Teeth: intact Dentures: no upper, no lower Anesthesia Pre-op A/P Labs Hematology Test 10/28/18 07:55 White Blood Count 7.8 K/UL (4.8-10.8) Red Blood Count 3.49 M/UL (4.70-6.10) L Hemoglobin 9.0 G/DL (14.2-18.0) L Hematocrit 29.0 % (42.0-52.0) L Mean Corpuscular Volume 83 FL (80-99) Mean Corpuscular Hemoglobin 25.7 PG (27.0-31.0) L Mean Corpuscular Hemoglobin Concent 31.0 G/DL (32.0-36.0) L Red Cell Distribution Width 24.0 % (11.6-14.8) H Platelet Count 292 K/UL (150-450) Mean Platelet Volume 5.5 FL (6.5-10.1) L Neutrophils (%) (Auto) 67.1 % (45.0-75.0) Lymphocytes (%) (Auto) 19.8 % (20.0-45.0) L Monocytes (%) (Auto) 8.1 % (1.0-10.0) Eosinophils (%) (Auto) 4.2 % (0.0-3.0) H Basophils (%) (Auto) 0.8 % (0.0-2.0) Coagulation Test 10/28/18 07:55 Prothrombin Time 10.6 SEC (9.30-11.50) Prothromb Time International Ratio 1.0 (0.9-1.1) Activated Partial Thromboplast Time 24 SEC (23-33) Chemistry Test 10/28/18 07:55 Sodium Level 141 MMOL/L (136-145) Potassium Level 3.9 MMOL/L (3.5-5.1) Chloride Level 111 MMOL/L (98-107) H Carbon Dioxide Level 22 MMOL/L (21-32) Anion Gap 8 mmol/L (5-15) Blood Urea Nitrogen 6 mg/dL (7-18) L Creatinine 0.9 MG/DL (0.55-1.30) Estimat Glomerular Filtration Rate > 60 mL/min (>60) Glucose Level 134 MG/DL (74-106) H Calcium Level 8.0 MG/DL (8.5-10.1) L Studies Pre-op Studies: EKG - NSR Risk Assessment & Plan Assessment: A&Ox4 Plan: MAC Status Change Before Surgery: No Pre-Antibiotics Given Within 1 Hr of Incision: No Sybil Ferrara CRNA Oct 28, 2018 12:18
--- NOTE | 2018-10-28 12:19 | Immediate Post-Op Evaluation ---
Immediate Post-Op Evalulation Immediate Post-Op Evalulation Procedure: EGD/Colonoscopy Date of Evaluation: Oct 28, 2018 Time of Evaluation: 12:30 IV Fluids: NSS 350 ml Blood Products: 0 Estimated Blood Loss: 0 Urinary Output: 0 Blood Pressure Systolic: 113 Blood Pressure Diastolic: 72 Pulse Rate: 57 Respiratory Rate: 18 O2 Sat by Pulse Oximetry: 100 Temperature (Fahrenheit): 98.3 Pain Score (1-10): 0 Nausea: No Vomiting: No Complications none noted Patient Status: awake, reacts Hydration Status: adequate Given Within 1 Hr of Incision: Sybil Candelaria CRNA Oct 28, 2018 12:19
--- NOTE | 2018-10-28 12:19 | 48 Hour Post Anesthesia Eval ---
Post Anesthesia Evaluation Procedure: EGD/Colonoscopy Date of Evaluation: Oct 28, 2018 Time of Evaluation: 13:29 Blood Pressure Systolic: 139 0: 86 Pulse Rate: 57 Respiratory Rate: 18 Temperature (Fahrenheit): 97.3 O2 Sat by Pulse Oximetry: 97 Airway: patent Nausea: No Vomiting: No Pain Intensity: 0 Hydration Status: adequate Mental Status/LOC: patient returned to baseline Follow-up care needed: patient intructions given Sybil Ferrara CRNA Oct 28, 2018 12:19
--- NOTE | 2018-10-28 12:27 | Endoscopy Procedure Note ---
Endoscopy Procedure Note General Indication for Procedure: anemia Procedures Performed: EGD, colonoscopy Operative Findings/Diagnosis: gastric bypass?, colon polyp Specimen: yes Pt Tolerated Procedure Well: Yes Estimated Blood Loss: none Anesthesia Anesthesiologist: ashley Anesthesia: MAC Inserted Devices Implant(s) used?: No Quality Quality of Bowel Preparation: Poor Did scope reach the cecum?: Yes Was there any complications?: No GI Core Measures 50 yrs or older w/o bx or poly: Not Applicable 10yrs. F/U not recommended: Not Applicable Sudheer Tavares MD Oct 28, 2018 12:27
--- NOTE | 2018-10-28 12:45 | Cardiac Electrophysiology PN ---
Assessment/Plan Assessment/Plan 1. Hypertension. Continue metoprolol 50 mg po bid. Echocardiogram showed EF 65% 2. Iron-deficiency anemia due to lower GI bleed. The patient is status post gastric bypass. Had EGD and colonoscopy by Dr Tavares today. The patient is on iron and proton pump inhibitor. 3. Tachycardia due to GI bleed which has resolved. ADELAIDE RN Subjective Subjective Had EGD and Colonoscopy by Dr. Tavares today Objective Last 24 Hour Vital Signs Date Time Temp Pulse Resp B/P (MAP) Pulse Ox O2 Delivery O2 Flow Rate FiO2 10/28/18 09:00 Room Air 10/28/18 08:32 55 142/86 10/28/18 08:00 98.8 55 21 142/86 (104) 98 10/28/18 07:39 89 10/28/18 04:00 98.0 55 20 125/79 (94) 98 10/28/18 03:21 56 10/28/18 00:00 98.0 59 20 119/79 (92) 95 10/27/18 23:25 57 10/27/18 21:00 Room Air 10/27/18 21:00 54 118/70 10/27/18 20:10 55 10/27/18 20:00 98.5 60 20 118/70 (86) 93 10/27/18 16:00 98.1 59 20 127/82 (97) 98 10/27/18 15:48 67 Intake and Output 10/27/18 10/28/18 19:00 07:00 Intake Total 1575 ml 910 ml Output Total 1100 ml Balance 475 ml 910 ml Intake Oral 1250 ml IV Total 325 ml 910 ml Output Urine Total 1100 ml # Voids 3 # Bowel Movements 3 Laboratory Tests Test 10/28/18 07:55 White Blood Count 7.8 K/UL (4.8-10.8) Red Blood Count 3.49 M/UL (4.70-6.10) L Hemoglobin 9.0 G/DL (14.2-18.0) L Hematocrit 29.0 % (42.0-52.0) L Mean Corpuscular Volume 83 FL (80-99) Mean Corpuscular Hemoglobin 25.7 PG (27.0-31.0) L Mean Corpuscular Hemoglobin Concent 31.0 G/DL (32.0-36.0) L Red Cell Distribution Width 24.0 % (11.6-14.8) H Platelet Count 292 K/UL (150-450) Mean Platelet Volume 5.5 FL (6.5-10.1) L Neutrophils (%) (Auto) 67.1 % (45.0-75.0) Lymphocytes (%) (Auto) 19.8 % (20.0-45.0) L Monocytes (%) (Auto) 8.1 % (1.0-10.0) Eosinophils (%) (Auto) 4.2 % (0.0-3.0) H Basophils (%) (Auto) 0.8 % (0.0-2.0) Prothrombin Time 10.6 SEC (9.30-11.50) Prothromb Time International Ratio 1.0 (0.9-1.1) Activated Partial Thromboplast Time 24 SEC (23-33) Sodium Level 141 MMOL/L (136-145) Potassium Level 3.9 MMOL/L (3.5-5.1) Chloride Level 111 MMOL/L (98-107) H Carbon Dioxide Level 22 MMOL/L (21-32) Anion Gap 8 mmol/L (5-15) Blood Urea Nitrogen 6 mg/dL (7-18) L Creatinine 0.9 MG/DL (0.55-1.30) Estimat Glomerular Filtration Rate > 60 mL/min (>60) Glucose Level 134 MG/DL (74-106) H Calcium Level 8.0 MG/DL (8.5-10.1) L Objective HEAD AND NECK: Showed no JVD. LUNGS: Clear. CARDIOVASCULAR: Regular S1 and S2 with no gallop or murmur. ABDOMEN: Soft. EXTREMITIES: No pitting edema. Trav Guillen MD Oct 28, 2018 12:45
--- NOTE | 2018-10-28 13:36 | NUR ---
NURSE NOTES: Patient came back from GI lab. Alert and oriented X4. No acute distress/SOB noted. Patient denies any pain/discomfort. Offered lunch. Will continue plan of care.
--- NOTE | 2018-10-28 14:29 | Pulmonology Progress Note ---
Assessment/Plan Problems: (1) LGI bleed (2) HTN (hypertension) (3) Anemia Assessment/Plan endoscopy done hem dropped form 9 to 8 prbc prn symptomatic treatment check h/h prbc prn Subjective ROS Limited/Unobtainable: No Constitutional: Reports: no symptoms HEENT: Repors: no symptoms Respiratory: Reports: no symptoms Allergies: Coded Allergies: No Known Allergies (Unverified , 10/23/18) Objective Last 24 Hour Vital Signs Date Time Temp Pulse Resp B/P (MAP) Pulse Ox O2 Delivery O2 Flow Rate FiO2 10/28/18 13:36 97.0 67 20 154/90 (111) 98 10/28/18 13:30 57 18 97 10/28/18 13:29 57 18 100 10/28/18 13:05 57 18 139/86 97 Room Air 57 10/28/18 12:55 97.3 52 20 142/86 98 Room Air 59 10/28/18 12:48 59 16 135/85 96 Room Air 59 10/28/18 12:40 61 19 131/83 97 Room Air 61 10/28/18 12:35 58 20 135/72 96 Room Air 58 10/28/18 12:30 97.2 57 18 113/72 100 Room Air 57 10/28/18 09:00 Room Air 10/28/18 08:32 55 142/86 10/28/18 08:00 98.8 55 21 142/86 (104) 98 10/28/18 07:39 89 10/28/18 04:00 98.0 55 20 125/79 (94) 98 10/28/18 03:21 56 10/28/18 00:00 98.0 59 20 119/79 (92) 95 10/27/18 23:25 57 10/27/18 21:00 Room Air 10/27/18 21:00 54 118/70 10/27/18 20:10 55 10/27/18 20:00 98.5 60 20 118/70 (86) 93 10/27/18 16:00 98.1 59 20 127/82 (97) 98 10/27/18 15:48 67 Intake and Output 10/27/18 10/28/18 19:00 07:00 Intake Total 1575 ml 910 ml Output Total 1100 ml Balance 475 ml 910 ml Intake Oral 1250 ml IV Total 325 ml 910 ml Output Urine Total 1100 ml # Voids 3 # Bowel Movements 3 General Appearance: WD/WN HEENT: normocephalic, atraumatic Respiratory/Chest: chest wall non-tender, lungs clear Cardiovascular: normal peripheral pulses, normal rate Abdomen: normal bowel sounds, soft, non tender Neurologic/Psychiatric: fruit thinner II-XII grossly normal, no motor/sensory deficits Laboratory Tests 10/28/18 07:55: White Blood Count 7.8, Red Blood Count 3.49L, Hemoglobin 9.0L, Hematocrit 29.0L , Mean Corpuscular Volume 83, Mean Corpuscular Hemoglobin 25.7L, Mean Corpuscular Hemoglobin Concent 31.0L, Red Cell Distribution Width 24.0H, Platelet Count 292, Mean Platelet Volume 5.5L, Neutrophils (%) (Auto) 67.1, Lymphocytes (%) (Auto) 19.8L, Monocytes (%) (Auto) 8.1, Eosinophils (%) (Auto) 4.2H, Basophils (%) (Auto) 0.8, Prothrombin Time 10.6, Prothromb Time International Ratio 1.0, Activated Partial Thromboplast Time 24, Sodium Level 141, Potassium Level 3.9, Chloride Level 111H, Carbon Dioxide Level 22, Anion Gap 8, Blood Urea Nitrogen 6L, Creatinine 0.9, Estimat Glomerular Filtration Rate > 60, Glucose Level 134H, Calcium Level 8.0L Current Medications Medications (Trade) Dose Ordered Sig/Keyon Route PRN Reason Start Time Stop Time Status Last Admin Dose Admin Acetaminophen (Tylenol) 650 mg Q4H PRN ORAL fever (temp>100.5F) 10/24/18 21:30 11/23/18 21:29 Al Hydroxide/Mg Hydroxide (Mylanta II) 30 ml Q6H PRN ORAL dyspepsia 10/24/18 21:30 11/23/18 21:29 Clonidine HCl (Catapres Tab) 0.1 mg Q4H PRN ORAL sbp>170 10/27/18 09:15 11/26/18 09:14 Dextrose (Dextrose 50%) 25 ml Q30M PRN IV Hypoglycemia 10/24/18 21:30 11/23/18 21:29 Dextrose (Dextrose 50%) 50 ml Q30M PRN IV Hypoglycemia 10/24/18 21:30 11/23/18 21:29 Dextrose/Sodium Chloride 1,000 ml @ 75 mls/hr [id number] IV 10/27/18 12:00 11/26/18 11:59 10/28/18 14:21 Diphenhydramine HCl (Benadryl) 25 mg Q6H PRN ORAL Itching/Pruritis 10/24/18 21:30 11/23/18 21:29 Gabapentin (Neurontin) 300 mg BID ORAL 10/25/18 09:00 11/24/18 08:59 10/28/18 08:26 Iron Sucrose 100 mg/Sodium Chloride 60 ml @ 240 mls/hr BEDTIME IV 10/25/18 21:00 10/29/18 21:14 10/27/18 21:00 Metoprolol Tartrate (Lopressor) 50 mg EVERY 12 HOURS ORAL 10/25/18 09:00 11/24/18 08:59 10/27/18 08:40 Morphine Sulfate (Morphine Sulfate) 2 mg Q4H PRN IVP severe Pain (Pain Scale 7-10) 10/24/18 21:30 10/31/18 21:29 Nitroglycerin (Ntg) 0.4 mg Q5M X 3 DOSES PRN SL Prn Chest Pain 10/24/18 21:30 11/23/18 21:29 Ondansetron HCl (Zofran) 4 mg Q6H PRN IVP Nausea & Vomiting 10/24/18 21:30 11/23/18 21:29 Pantoprazole (Protonix) 40 mg DAILY IVP 10/25/18 09:00 11/24/18 08:59 10/28/18 08:26 Polyethylene Glycol (Miralax) 17 gm HSPRN PRN ORAL Constipation 10/24/18 21:30 11/23/18 21:29 Tamsulosin HCl (Flomax) 0.4 mg BEDTIME ORAL 10/25/18 21:00 11/24/18 20:59 10/27/18 21:00 Temazepam (Restoril) 15 mg HSPRN PRN ORAL Insomnia 10/24/18 21:30 10/31/18 21:29 Nelsy Salas MD Oct 28, 2018 14:29
[2018-10-28] MEDS ORDERED: PROTONIX40 M2 GT (14:30)
--- NOTE | 2018-10-28 14:38 | General Progress Note ---
Assessment/Plan Problem List: (1) HTN (hypertension) ICD Codes: I10 - Essential (primary) hypertension SNOMED: 65028705 (2) Dizziness ICD Codes: R42 - Dizziness and giddiness SNOMED: 939888197, 983616482 (3) Iron deficiency ICD Codes: E61.1 - Iron deficiency SNOMED: 51592238 (4) Anemia ICD Codes: D64.9 - Anemia, unspecified SNOMED: 878922182, 235936763 Qualifiers: Qualified Codes: D64.9 - Anemia, unspecified (5) LGI bleed ICD Codes: K92.2 - Gastrointestinal hemorrhage, unspecified SNOMED: 95835346, 068463883 Status: stable, progressing Assessment/Plan pt adv diet transfuse prn gi f/u dc if clear Subjective Constitutional: Reports: weakness Allergies: Coded Allergies: No Known Allergies (Unverified , 10/23/18) All Systems: reviewed and negative except above Subjective ate ok Objective Last 24 Hour Vital Signs Date Time Temp Pulse Resp B/P (MAP) Pulse Ox O2 Delivery O2 Flow Rate FiO2 10/28/18 13:36 97.0 67 20 154/90 (111) 98 10/28/18 13:30 57 18 97 10/28/18 13:29 57 18 100 10/28/18 13:05 57 18 139/86 97 Room Air 57 10/28/18 12:55 97.3 52 20 142/86 98 Room Air 59 10/28/18 12:48 59 16 135/85 96 Room Air 59 10/28/18 12:40 61 19 131/83 97 Room Air 61 10/28/18 12:35 58 20 135/72 96 Room Air 58 10/28/18 12:30 97.2 57 18 113/72 100 Room Air 57 10/28/18 09:00 Room Air 10/28/18 08:32 55 142/86 10/28/18 08:00 98.8 55 21 142/86 (104) 98 10/28/18 07:39 89 10/28/18 04:00 98.0 55 20 125/79 (94) 98 10/28/18 03:21 56 10/28/18 00:00 98.0 59 20 119/79 (92) 95 10/27/18 23:25 57 10/27/18 21:00 Room Air 10/27/18 21:00 54 118/70 10/27/18 20:10 55 10/27/18 20:00 98.5 60 20 118/70 (86) 93 10/27/18 16:00 98.1 59 20 127/82 (97) 98 10/27/18 15:48 67 Intake and Output 10/27/18 10/28/18 19:00 07:00 Intake Total 1575 ml 910 ml Output Total 1100 ml Balance 475 ml 910 ml Intake Oral 1250 ml IV Total 325 ml 910 ml Output Urine Total 1100 ml # Voids 3 # Bowel Movements 3 Laboratory Tests 10/28/18 07:55: White Blood Count 7.8, Red Blood Count 3.49L, Hemoglobin 9.0L, Hematocrit 29.0L , Mean Corpuscular Volume 83, Mean Corpuscular Hemoglobin 25.7L, Mean Corpuscular Hemoglobin Concent 31.0L, Red Cell Distribution Width 24.0H, Platelet Count 292, Mean Platelet Volume 5.5L, Neutrophils (%) (Auto) 67.1, Lymphocytes (%) (Auto) 19.8L, Monocytes (%) (Auto) 8.1, Eosinophils (%) (Auto) 4.2H, Basophils (%) (Auto) 0.8, Prothrombin Time 10.6, Prothromb Time International Ratio 1.0, Activated Partial Thromboplast Time 24, Sodium Level 141, Potassium Level 3.9, Chloride Level 111H, Carbon Dioxide Level 22, Anion Gap 8, Blood Urea Nitrogen 6L, Creatinine 0.9, Estimat Glomerular Filtration Rate > 60, Glucose Level 134H, Calcium Level 8.0L Height (Feet): 5 Height (Inches): 10.00 Weight (Pounds): 179 General Appearance: alert EENT: normal ENT inspection Neck: normal alignment Cardiovascular: normal peripheral pulses, normal rate, regular rhythm Respiratory/Chest: chest wall non-tender, lungs clear, normal breath sounds Abdomen: normal bowel sounds, non tender, soft Extremities: normal inspection Edema: no edema noted Arm (L), no edema noted Arm (R), no edema noted Leg (L), no edema noted Leg (R), no edema noted Pedal (L), no edema noted Pedal (R), no edema noted Generalized Neurologic: responsive, motor weakness Skin: normal pigmentation, warm/dry Singer,Srinivas Chi-Fouzia DO Oct 28, 2018 14:38
--- NOTE | 2018-10-28 15:16 | NUR ---
NURSE NOTES: Discharge instruction given and patient verbalized understanding. Inventory check done. Removed teletypesetter monitor and IV line. IV site clean and no bleeding. Awaiting for brother to pick-up. No acute distress/SOB noted. pt denies any pain/discomfort. Will continue plan of care.
--- NOTE | 2018-10-28 15:34 | NUR ---
NURSE NOTES: Discharge instruction given to brother as pt wanted and verbalized understanding. Patient is discharged with stable condition.
--- NOTE | 2018-10-28 16:15 | Procedure Note ---
DATE OF PROCEDURE: 10/28/2018 SURGEON: Sudheer Tavares M.D. PROCEDURE: Upper endoscopy with biopsy and colonoscopy with biopsy. ANESTHESIA: Per Josias RODRIGUEZ. INSTRUMENT: Olympus flexible upper endoscope and colonoscope. INDICATION: Anemia, stool OB positive. REASON FOR PROCEDURE: The procedure, risks, benefits, and possible consequences, including hemorrhage, aspiration, perforation and infection, and alternative treatments, were explained to the patient/legal guardian by Dr. Suhdeer Tavares and the patient/legal guardian understood and accepted these risks. DESCRIPTION OF PROCEDURE: After informed consent was obtained and the patient was adequately sedated, Olympus upper endoscope was advanced from the mouth into the esophagus. Then into the gastric pouch. The patient has almost subtotal gastrectomy. There was only little pouch of stomach left. No evidence of any bleeding. No esophagitis. No obvious blood or blood products. Random biopsy from the gastric pouch was obtained to rule out H. pylori infection. At this time, the upper endoscope was retrieved. The patient had evidence of a small inlet patch on the proximal esophagus. The patient was turned over for colonoscopy. First, rectal exam was performed, which was positive for internal hemorrhoids. Then the scope was advanced from the rectum into the cecum documented by appendiceal orifice, ileocecal valve, and right upper quadrant palpation. Quality of prep was poor. No evidence of any active bleeding. There was one diminutive polyp in the transverse colon, which was removed with the cold biopsy forceps technique. Retroflexion of rectum showed evidence of internal hemorrhoids. SUMMARY OF FINDINGS: 1. Subtotal gastrectomy. 2. Inlet patch. 3. One colonic polyp removed, see above for details. 4. Poor colonic prep. 5. Internal hemorrhoids. RECOMMENDATIONS: 1. Follow up biopsy results and treat accordingly. 2. The patient most probably has anemia secondary to the subtotal gastrectomy maybe a Ana-en-Y surgery. 3. We will recommend resuming diet. 4. Discharge planning per primary team. 5. Follow as an outpatient. I want to thank, Dr. Srinivas Singer, for this kind referral. Sudheer Tavares M.D. DR: SANDY JOB#: [id number] CC: Srinivas Singer D.O.
--- NOTE | 2018-10-29 11:16 | Discharge Summary ---
Discharge Summary Discharge Summary _ DATE OF ADMISSION: 10/24/2018 DATE OF DISCHARGE: 10/28/2018 DISCHARGED BY: Dr. Srinivas Singer CONSULTANTS: Dr. Colin Guillen BRIEF HOSPITAL COURSE: Patient is a 63-year-old male, who lives at home, presented to ED complaining of dark stools. He was complaining of dizziness and lightheadedness with unsteady gait. He denied any headache. Denied chest pain or shortness of breath. He has medical history significant for hypertension. On evaluation at ED, vital signs were stable. Blood work showed WBC of 14. Patient was severely anemic with hemoglobin of 5.4 and hematocrit 17.9. At the ED, patient had dark colored stools. Urine toxicology was negative. EKG was in normal sinus rhythm. Chest x-ray showed no acute disease. CT of the head was without acute process. He was then admitted for evaluation of GI bleed. GI was consulted. Patient was placed on n.p.o. Patient presented with hematochezia and severe microcytic anemia. He was given blood transfusion. Patient was recommended need for endoscopy. Patient claimed he had recent EGD/ colonoscopy done at [place]. He was started on clear liquid diet. He was given IV iron and was placed on proton pump inhibitors. Attempt was made to obtain records from [facility], however was unsuccessful. Patient continued to have drop in hemoglobin. Stool OB was positive. Patient was rescheduled for endoscopy. He was tachycardic and had elevated BP. Negotiations Director was consulted. He was given Remeron 50 mg p.o. twice daily. Echocardiogram done showed ejection fraction of 65% with ventricular systolic pressure of 37, consistent with mild pulmonary hypertension. Tachycardia was due to GI bleed, resolved. Troponin negative. Venous duplex was negative for DVT. On 10/28/2018, he underwent EGD with endoscopy. Findings showed subtotal gastrectomy, inlet patch; colonic polyp which was removed, internal hemorrhoids , and poor colonic prep. Patient most probably has anemia secondary to subtotal gastrectomy; there was no evidence of any active bleed. Diet was resumed. Blood levels were stable. Patient was tolerating diet well. Leukocytosis resolved. He was eventually cleared for discharge home, to follow-up for biopsy results. FINAL DIAGNOSES: Lower GI bleed with anemia Drop in hemoglobin requiring blood transfusion Status post upper endoscopy with biopsy and colonoscopy with biopsy Subtotal gastrectomy Internal hemorrhoids Colonic polyp Hypertension Iron deficiency anemia Tachycardia due to GI bleed, resolved DISPOSITION: Patient was discharged home. DISCHARGE MEDICATIONS: Refer to Discharge Medication List. DISCHARGE INSTRUCTIONS: Follow-up in a week. I have been assigned to dictate discharge summary on this account, and I was not involved in the patient's management. Maribel Chiu NP Oct 29, 2018 11:16
== END 2018-10-28 15:34 | disposition home or self-care (01) | DRG 253 ==
LOC: EMR 16:42 → 2E 18:01 → EDBEDREQ 18:13 → 2E 10-25 01:07
PROC: 30233N1 Transfusion of Nonautologous Red Blood Cells into Peripheral Vein, Percutaneous Approach (ICD-10-PCS; principal; 2018-10-24)
PROC: 0DBL8ZZ Excision of Transverse Colon, Via Natural or Artificial Opening Endoscopic (ICD-10-PCS; 2018-10-28)
PROC: 0DB68ZX Excision of Stomach, Via Natural or Artificial Opening Endoscopic, Diagnostic (ICD-10-PCS; 2018-10-28 12:05)
DX: K92.2 Gastrointestinal hemorrhage, unspecified (principal); D50.0 Iron deficiency anemia secondary to blood loss (chronic); K63.5 Polyp of colon; I10 Essential (primary) hypertension; F17.200 Nicotine dependence, unspecified, uncomplicated; K64.8 Other hemorrhoids; R00.0 Tachycardia, unspecified; Z98.84 Bariatric surgery status; R42 Dizziness and giddiness
CPT/HCPCS: 36415; 70450; 71045; 80048; 80053; 80061; 80307; 80329; 82150; 82270; 82728; 83540; 83550; 83690; 84484; 85007; 85025; 85610; 85730; 86850; 86900; 86901; 86920; 93005; 93306; 93970; 94003; 94150; 96361; 96374; 96375; 99285; J2250